=== PATIENT | female | born 1945 | race African-American/Black ===

== ENCOUNTER 2016-10-14 18:25 | Inpatient (IN) | payer OTHER ==
--- NOTE | ~2016-10-14 | IDS ---
Interim Discharge Summary [facility] [address] [place]. [address] NAME: MARCE VOGEL : 41 STATUS : ADM IN PAT#: [id number] AGE: 71 ADM/REG DATE : 10/14/16 MR#: [id number] REPORT SERV DATE: 11/09/16 DICTATED BY: MARIA DOLORES ENGLE DATE: 11/09/16 REPORT STATUS : Draft TRANSCRIBED BY: MODL DATE: 11/09/16 ADMISSION DATE: 10/14/2016 DISCHARGE DATE: CONSULTANTS: Please see full list on my interim summary of 10/26/2016. PROBLEM LIST: 1. TTP with thrombocytopenia, hemolytic anemia, status post acute kidney injury, non-ST- elevation myocardial infarction, and multiple strokes. 2. Owl-HM-xqkefytxb myocardial infarction with ejection fraction of 40%. 3. Multiple bilateral acute ischemic strokes. 4. Metabolic encephalopathy related to problem #1 and strokes. 5. Escherichia coli urinary tract infection. 6. Previous DVT and pulmonary embolism, 07/2013 after left total knee replacement. 7. History of gout. 8. History of irritable bowel syndrome. HISTORY: She came to the ER at [facility] with complaints of headache and blurred vision and was seen by an fabric worker supervisor prior to that ER visit. She was sent to get a sedimentation rate, and a temporal arteritis evaluation. She was noted to have platelet count of 12 and total bilirubin of 1.6 and AST of 64. She was referred to our team for inpatient care. CT scan of the brain showed mild diffuse atrophy, moderate deep white matter changes. No acute abnormalities noted. MRI of the brain, 10/15/2016 showed bilateral acute embolic infarctions involving both hemispheres, very small in size, largest was in the left parietal occipital region. There were some microbleeds suggesting the possibility of amyloid angiopathy. Earlier, she was thought to have ITP, was given Decadron. She was then given IVIG. She had a bone marrow, that was unremarkable. Hepatitis A, B, and C, serology negative. HIV was nonreactive. The patient's troponin was elevated at 3.4 with some vague anterior chest discomfort. EKG showed inferolateral ST depression without elevation. Dr. Da Silva of Cardiology saw her. Echocardiogram showed ejection fraction of 40%. He felt she had a non-ST elevation myocardial infarction and possibly some underlying coronary disease. With her stroke and TTP, she was recommended for medical therapy and no angiography is planned at this time per my discussions with Cardiology. The patient developed acute kidney injury and the constellation then was more consistent with TTP. Plasmapheresis was initiated. Hematology saw her as well, Dr. Roe and his partners. Her platelet counts normalized, LDH normalized. Her plasmapheresis was held for a day or two, but her thrombocytopenia and hemolytic anemia worsened, and LDH went up again, so she is back on daily plasmapheresis. She is also getting weekly Rituxan. She has two more doses scheduled. She is currently on prednisone and the dose was reduced yesterday from 60 to 40 mg daily. Because of the high-dose steroids, she is on Protonix for GI prophylaxis. She has had a metabolic encephalopathy, where she was quite slow mentally and her movements Interim Discharge Summary [address] [place]. [address] NAME: MARCE VOGEL : 43 STATUS : ADM IN [facility]#: [id number] AGE: 71 ADM/REG DATE : 10/14/16 MR#: [id number] REPORT SERV DATE: 11/09/16 DICTATED BY: MARIA DOLORES ENGLE DATE: 11/09/16 REPORT STATUS : Draft TRANSCRIBED BY: MODL DATE: 11/09/16 were very slow as well, however that is improving. She has symmetrical weakness of 2/5 in all four extremities. She initially had double vision, which does not appear to be there now. Again, the plan is for her to go to rehab, when she is well enough to get out of the hospital. Hematology has followed her closely. Her anti-HKKRSF01 was 5, which is very low. So, Dr. 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 I have updated her daughter, Remington by phone She has E coli urinary tract infection, has been receiving Levaquin with symptomatic improvement. Currently, the orders for SCDs are in place for DVT prophylaxis. We have left orders to start on Lovenox, if and when Hematology is in agreement with this. KELTON/TUNG Maria Dolores Engle M.D. / [id number] CC: Kelvin Stern M.D.
--- NOTE | ~2016-10-14 | HP ---
History And Physical [place] [id number] [facility] [place]. [address] NAME: MARCE VOGEL : 43 STATUS : ADM IN PAT#: [id number] AGE: 71 ADM/REG DATE : 10/14/16 MR#: [id number] REPORT SERV DATE: 10/15/16 DICTATED BY: ASHLEY HICKMAN DATE: 10/15/16 REPORT STATUS : Draft TRANSCRIBED BY: MODL DATE: 10/15/16 DATE OF ADMISSION: 10/14/2016 CHIEF COMPLAINT: A 71-year-old female presenting with headache, and evidence of ITP. HISTORY OF PRESENTING ILLNESS: The patient's history was obtained through careful interview with the patient and two daughters coupled with review of [facility] and [facility] medical records. The patient believes she first had deteriorating health when she had a left knee surgery in 2012 and subsequently developed a pulmonary embolism. Because it was thought to be a provoked DVT and pulmonary embolism, she was on Xarelto for about six months, and then taken off this medication. Over these last four years, the patient has lost a total of 30 pounds gradually and has just been gradually, progressively debilitated by her own description. Recently, she has developed a new onset headache in her left jehovah's witness mostly, it has been present for about five or six days, a pressure like quality, sometimes making it difficult to sleep, up to 10/10 severity. She has had associated blurry vision, with an inability to focus in her left eye greater than right, and she actually went to see an hospital aide on day of admission, and was told that she had a negative ophthalmological exam and was referred to emergency department for CT scan of the brain and to check ESR to rule out temporal arteritis. She has had some slight nausea, but no vomiting. No shortness of breath. No chest pain. She has been taking p.r.n. Aleve for pain complaints. She does use chronic FiberCon for bowel regulation, and she has chronic right lymphedema that comes and goes. REVIEW OF SYSTEMS: Otherwise, a 14-point review of systems was obtained and was negative. PAST MEDICAL HISTORY: 1. Mitral valve prolapse. 2. Irritable bowel syndrome, seen by Dr. He. 3. Hypertension. 4. Headaches. 5. Gout. 6. Pulmonary embolism in 09/2016, provoked from her left knee surgery, taken off Xarelto after 6 months. 7. Thrombocytosis with a platelet count in the 500s in 2013. History And Physical [address] [address] NAME: MARCE VOGEL : 43 STATUS : ADM IN PAT#: [id number] AGE: 71 ADM/REG DATE : 10/14/16 MR#: [id number] REPORT SERV DATE: 10/15/16 DICTATED BY: ASHLEY HICKMAN DATE: 10/15/16 REPORT STATUS : Draft TRANSCRIBED BY: TUNG DATE: 10/15/16 8. Asthma. PAST SURGICAL HISTORY: 1. Left knee surgery. 2. Tubal ligation. ALLERGIES: SULFA, FISH, IODINE. SOCIAL HISTORY: Quit smoking in 2004. No alcohol abuse. 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 Her favorite grade was third grade. She lives alone now, has two daughters. FAMILY HISTORY: Mother of colon cancer. Father with colon cancer, prostate cancer, but also had severe dementia. CURRENT MEDICATIONS: Include allopurinol 300 mg p.o. daily, vitamin C, aspirin 81 mg daily, calcium and vitamin D, vitamin B12, Bentyl 10 mg before meals, Cozaar 10 mg p.o. daily, Singulair 10 mg p.o. daily, nitroglycerin, Prilosec, vitamin E. PHYSICAL EXAMINATION: VITAL SIGNS: Temperature 98.8, pulse 80, blood pressure 186/98, respiratory rate 16, O2 saturation 100% on room air. GENERAL: Pleasant, cooperative female. She describes distressed from her left-sided headache. HEENT: Pupils equal, round, and reactive to light. No conjunctival pallor. No scleral icterus. Nares are patent. Oropharynx is clear of obstruction. Moist mucous membranes. The patient has this kind of dark bizarre appearing dotted speckles over her tongue of unclear significance. NECK: Trachea midline. No thyromegaly. LYMPH: No cervical lymphadenopathy. No supraclavicular lymphadenopathy. RESPIRATORY: Clear to auscultation at the bases. No wheezes, rales, or rhonchi. Normal respiratory effort. CARDIOVASCULAR: Regular rate and rhythm. I do appreciate a 2/6 rumbling systolic murmur. No rubs or gallops. No extremity edema is appreciated at this time. ABDOMEN: Soft, nontender, nondistended. Normal bowel sounds auscultated throughout. No organomegaly. DERMATOLOGICAL: Warm and dry extremities. No pallor. No cyanosis. No significant bruising. No purpura. PSYCHIATRIC: Normal affect. Good mood. Alert and oriented x3. LABORATORY DATA: White blood cell count 5, hemoglobin 11, hematocrit 34, platelets 12. ESR is 8. INR 1.1. Sodium 143, potassium 3.5, chloride 108, bicarb 29, BUN 20, creatinine 0.91, glucose 122. Total bilirubin is elevated at 1.6 with an AST of 64, but normal alkaline phosphatase of 110 and ALT of 27. STUDIES: CT scan of the brain without contrast shows no acute intracranial process. ASSESSMENT AND PLAN: History And Physical [address] [address] NAME: MARCE VOGEL : 43 STATUS : ADM IN [facility]#: [id number] AGE: 71 ADM/REG DATE : 10/14/16 MR#: [id number] REPORT SERV DATE: 10/15/16 DICTATED BY: ASHLEY HICKMAN DATE: 10/15/16 REPORT STATUS : Draft TRANSCRIBED BY: TUNG DATE: 10/15/16 1. ITP, we will screen for secondary causes including hepatitis panel, HIV, and MIGUEL, place on IV steroids, obtain Hematology consult. No evidence of current bleeding. 2. Severe new headache with vision changes. She has negative ESR, negative CT scan of the brain. Because of severity of presentation, we will check MRA of the brain. 3. Gradual weight loss of about 30 pounds over last three or four years. KPL/MODL Ashley Hickman M.D. / [id number] CC: MD Maryana Ely M.D.
--- NOTE | ~2016-10-14 | OP ---
Record Of Operation [facility] [address] [place]. [address] NAME: MARCE VOGEL : 43 STATUS : ADM IN [facility]#: [id number] AGE: 71 ADM/REG DATE : 10/14/16 MR#: [id number] REPORT SERV DATE: 10/19/16 DICTATED BY: CHANNING BANG DATE: 10/19/16 REPORT STATUS : Draft TRANSCRIBED BY: MODL DATE: 10/19/16 DATE OF PROCEDURE: 10/19/2016 PREOPERATIVE DIAGNOSIS: Idiopathic thrombocytopenia with severe depressed platelets. POSTOPERATIVE DIAGNOSIS: Idiopathic thrombocytopenia with severe depressed platelets. SURGERY PROCEDURE: Placement of temporary Vas-Cath, right common femoral vein. DESCRIPTION OF PROCEDURE: The patient was in the intensive care unit with a platelet count about 8000. The request was made for urgent placement of a Vas-Cath for plasmapheresis. The patient was somnolent, the right groin prepped and draped in a sterile fashion. Ultrasound was used to access the right femoral vein with a needle wire and a small sheath. The incision was made at the skin margin, and then the stripping catheter placed over the guidewire. The 20-cm Vas-Cath was then placed over the wire into the iliac vein and into the possible vena cava, and then the sheath was then stripped away. The catheter easily aspirated blood. It was then flushed with heparinized saline, sewn to the anterior thigh with 2-0 silk suture. A pursestring also made at the entry due to oozing from the catheter site. Dry dressings were applied. The patient tolerated the procedure well. ESTIMATED BLOOD LOSS: 30 mL. MG/MODL Channing Bang M.D. / [id number] CC: Rakesh Clemente MD
--- NOTE | ~2016-10-14 | DS ---
Discharge Summary [facility] [address] [place]. [address] NAME: MARCE VOGEL : 41 STATUS : ADM IN [facility]#: [id number] AGE: 71 ADM/REG DATE : 10/14/16 MR#: [id number] REPORT SERV DATE: 10/17/16 DICTATED BY: Melody RUBIO DATE: 10/17/16 REPORT STATUS : Draft TRANSCRIBED BY: MODL DATE: 10/17/16 ADMISSION DATE: 10/14/2016 DISCHARGE DATE: DATE OF INTERIM SUMMARY: 10/17/2016. DIAGNOSES AT THE TIME OF INTERIM SUMMARY: Multiple small embolic cerebrovascular accidents with small petechial areas of hemorrhage, suspected idiopathic thrombocytopenic purpura, hypertension, non-ST segment elevation myocardial infarction, left ventricular dysfunction, acute kidney injury, failure to thrive/weight loss, acute on chronic anemia. CONSULTS: Hematology, Cardiology, Neurology. PROCEDURES: Bone marrow biopsy. BRIEF HOSPITAL COURSE: A 71-year-old female patient who went to an outlying clinic with complaint of headache and visual change and she was sent to the emergency room for further evaluation. On additional labs, she was found to have severe thrombocytopenia and was admitted for further evaluation. The patient also had an MRI of the brain because of headache and visual symptoms. This ultimately showed multiple small embolic CVAs, acute in nature, with a few small areas of petechial-type hemorrhage. With regard to her suspected ITP, she was seen by Hematology and started on a combination of steroids and IVIG. She has had a bone marrow biopsy, which is complete but currently pending. Additional studies from her thrombocytopenia evaluation show a negative viral hepatitis panel, negative HIV, negative serum protein electrophoresis, negative urine protein immunophoresis, and negative evaluation of her peripheral smear. The patient also was found to have an elevated troponin level consistent with non-STEMI. The patient had an echocardiogram that did show diminished left ventricular function. She has been seen by Cardiology. Because of her severe thrombocytopenia, the patient is not a candidate for aggressive medical therapy, in fact, recommendations at this time are do not institute aspirin therapy until her platelet count is increased to 50,000 or greater. At the time of this interim summary, the patient is clinically very stable. Has minimal if any neurologic deficit. On therapy, her platelet count has increased to 44. She has developed some anemia of uncertain etiology. Currently, Hematology is waiting to evaluate her bone marrow biopsy before making further recommendations and she has not reached transfusion threshold at this point. The patient will transition to a cardiac telemetry bed for ongoing evaluation. She will continue on the current combination of steroids and IVIG for treatment of her ITP. We have placed her on a low dose of beta-gonzález because of her non-STEMI and she continues to be monitored closely. Another member of the hospitalist team will be providing her care starting 10/18/2016 with an ongoing co-management by combination of Cardiology, Hematology, and Neurology. Significant labs at time of this interim summary show a white count of 9, hemoglobin of 7.4, platelet count of 44, BUN of 54, and creatinine of 1.50. [facility]/MODL Discharge Summary [address] [address] NAME: MARCE VOGEL : 43 STATUS : ADM IN [facility]#: [id number] AGE: 71 ADM/REG DATE : 10/14/16 MR#: [id number] REPORT SERV DATE: 10/17/16 DICTATED BY: Melody RUBIO DATE: 10/17/16 REPORT STATUS : Draft TRANSCRIBED BY: TUNG DATE: 10/17/16 Melody Rubio M.D. / [id number] CC: MD Maryana Ely M.D.
--- NOTE | ~2016-10-14 | IDS ---
Interim Discharge Summary [facility] [address] [place]. [address] NAME: MARCE VOGEL : 43 STATUS : ADM IN PAT#: [id number] AGE: 71 ADM/REG DATE : 10/14/16 MR#: [id number] REPORT SERV DATE: 10/23/16 DICTATED BY: UMANG FLOWERS DATE: 10/23/16 REPORT STATUS : Draft TRANSCRIBED BY: MODL DATE: 10/23/16 ADMISSION DATE: 10/15/2016 DISCHARGE DATE: 10/18/2016 ICU COURSE: Please see dictated H and P as well as interim summary by Dr. Melton on 10/17 for the patient presentation and hospital course up until that point. BRIEF SUMMARY: The patient is a 71-year-old female with past medical history of hypertension and pulmonary embolism who was initially admitted to the Hospitalist Service with multiple small embolic CVAs with small petechial areas of hemorrhage, altered mental status, non-ST- elevation myocardial infarction, acute renal failure, and suspected idiopathic thrombocytopenic purpura. At that time, the patient was receiving IVIG as well as steroids on the floor with initial improvement in her laboratory data. Then however on 10/18, the patient developed worsening encephalopathy as well as worsening platelet count and rising creatinine. She was transferred to the ICU for worsening mental status and fear for potential need for intubation for airway protection. At that time, she had a repeat MRI of her brain that showed microhemorrhagic conversion of part of her stroke but otherwise nothing that could explain her worsening mental status. At that time, we got Nephrology involved as well. The thinking between Nephrology and Hematology was that they saw schistocytes on her smear and she likely had a TTP at that time. She was started on plasmapheresis and has undergone 5 days so far with today being day 6 and likely the final day of pheresis. Over that time period, we have seen improvement in her mental status to the point where she is now awake, talking, following commands, and seems to be doing well. Her platelet count has also improved as well as her creatinine. By all accounts, she seems to be responding to the plasmapheresis and her TTP seems to be improving. She has been hemodynamically stable and should be able to be transferred out to the floor today if she gets a bed after her last day of the plasmapheresis. Appreciate Nephrology and Hematology's assistance with this patient. They will continue to follow her when she goes out to the floor. When she leaves the ICU, the Hospitalist will resume her care. Please call if you have any questions. SB/TUNG Umang Flowers MD / [id number] CC: MD Maryana Ely M.D.
--- NOTE | ~2016-10-14 | IDS ---
Interim Discharge Summary [facility] [address] [place]. [address] NAME: MARCE VOGEL : 41 STATUS : ADM IN [facility]#: [id number] AGE: 71 ADM/REG DATE : 10/14/16 MR#: [id number] REPORT SERV DATE: 11/03/16 DICTATED BY: MARIKA COMER DATE: 11/03/16 REPORT STATUS : Draft TRANSCRIBED BY: MODL DATE: 11/03/16 ADMISSION DATE: 10/14/2016 DISCHARGE DATE: The date that I took over care of this patient is 10/27/2016. DIAGNOSES: So far include the followin. 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 The patient already has a port through which she gets the plasmapheresis. 2. Other diagnosis that are chronic and stable during this hospitalization itself include a kjx-XT-bqhyxno elevation myocardial infarction with ejection fraction of 40% of the left ventricle, which is stable at this time. 3. Multiple embolic strokes which the patient had as part of the thrombotic thrombocytopenic purpura syndrome I guess, which are stable at this time. 4. Seizure disorder that happened during this whole part of thrombotic thrombocytopenic purpura itself. The patient is being followed by Neurology, and Neurology recommends that the patient stay on Keppra 1 g p.o. twice a day indefinitely. 5. Multiple bilateral acute strokes from multiple emboli part of thrombotic thrombocytopenic purpura syndrome itself when she came in. 6. Metabolic encephalopathy ,which has almost cleared up. 7. History of previous deep venous thrombosis and pulmonary embolism in 2013 after total knee replacement. Hence, the patient is not a candidate for anticoagulation at least at this time. HOSPITAL COURSE: All the way until 10/26/2016, please refer to Dr. Engle's interim discharge summary. It is also to be noted that this patient was in the MICU for some time as she had come in critically sick as part of the whole big picture of the TTP/AIHA syndrome. This diagnosis was made during this admission. The patient continues to be followed by both Hematology/Oncology and also Nephrology as nephrologists are the ones who are doing her plasmapheresis. Plasmapheresis frequency however is being dictated by Heme/Onc. She also has been started on Rituxan in the mean time, and also high-dose prednisone. With this therapy, her platelets have stabilized and so has her hemoglobin and hematocrit. However, the heme/Onc doctor wants to keep her for few more days until her platelets start improving more and her hematocrit stabilizes also. Maybe in the next one or two days, the patient will be ready to go on to [facility] after recommendations for frequency of plasmapheresis is made by the Heme/Onc. As mentioned above, she continues to be on Rituxan and prednisone 60 mg a day and has been doing well so far. My colleague will be taking over care of this patient on 11/04/2016. PASCUAL/TUNG Interim Discharge Summary [address] [address] NAME: MARCE VOGEL : 41 STATUS : ADM IN PAT#: [id number] AGE: 71 ADM/REG DATE : 10/14/16 MR#: [id number] REPORT SERV DATE: 11/03/16 DICTATED BY: MARIKA COMER DATE: 11/03/16 REPORT STATUS : Draft TRANSCRIBED BY: TUNG DATE: 11/03/16 Marika Comer M.D. / [id number] CC: Kelvin Bui M.D.
--- NOTE | ~2016-10-14 | EEG ---
Electroencephalogram [address] [place]. [address] NAME: MARCE VOGEL : 41 STATUS : ADM IN PAT#: [id number] AGE: 71 ADM/REG DATE : 10/14/16 MR#: [id number] REPORT SERV DATE: 10/22/16 DICTATED BY: ANGI CRUZ DATE: 10/22/16 REPORT STATUS : Draft TRANSCRIBED BY: TUNG DATE: 10/22/16 REQUESTING PHYSICIAN: Angi Cruz M.D. INTERPRETING PHYSICIAN: Angi Cruz M.D. AGE: 71. DATE OF : 1945. REASON FOR EEG: Abrupt altered mental status, thrombocytopenia, multiple embolic stroke, rule out status epilepticus seizures. This EEG was technically unsatisfactory secondary to inability to place electrodes on the patient's scalp. The PEG was done at the patient's bedside. I was able to observe the EEG while it was being performed monitoring the patient's response. No evidence of tonic-clonic activity was seen. The electrodes were placed only in the anterior head regions and there was no evidence of acute seizure activity. Could not comment or determine whether the patient may have had any abnormal activity in posterior head regions. This EEG is technically unsatisfactory for full interpretation. ROYCE/TUNG Angi Cruz MD / [id number] CC: MD PAIGE Ely TANJA A.
--- NOTE | ~2016-10-14 | DS ---
Discharge Summary [facility] [address] [place]. [address] NAME: MARCE VOGEL : 41 STATUS : DIS IN PAT#: [id number] AGE: 71 ADM/REG DATE : 10/14/16 MR#: [id number] REPORT SERV DATE: 11/16/16 DICTATED BY: NAVEEN OLMOS DATE: 11/15/16 REPORT STATUS : Draft TRANSCRIBED BY: MODL DATE: 11/15/16 ADMISSION DATE: 10/14/2016 DISCHARGE DATE: 11/14/2016 PRINCIPAL DIAGNOSIS: Thrombotic thrombocytopenic purpura. SECONDARY DIAGNOSES: 1. Acute stroke in the setting of abnormal coagulation cascade. 2. Non ST-segment elevation myocardial infarction in the setting of an abnormal coagulation cascade. 3. Metabolic encephalopathy. 4. Hemolytic anemia. 5. Thrombocytopenia. 6. Hypertension. 7. Urinary tract infection. 8. Reduced ejection fraction. HISTORY OF PRESENT ILLNESS: Please see Dr. Patricia's dictation on 10/14/2016. HOSPITAL COURSE: Please see subsequent interim summaries by Dr. Melton on 10/18/2016, Dr. Pate on 11/03/2016, Dr. Engle on 11/10/2016. Subsequent hospital course, the patient continued plasmapheresis on Thursday, Thursday, and Thursday. Received yet another dose of rituximab on 11/14/2016. Platelets had stabilized. LDH continued to be mildly elevated. The creatinine had also normalized. It was felt that the main issue for her was weakness and she would require ongoing physical therapy and arrangements were made to transfer to [facility]. No further plasmapheresis was planned. She would hold off on this until her next Rituxan therapy in one week, although her Port-A-Cath would remain in place with consideration of resuming that after a week. Mental status is okay. She participating well and eating well. Bowels were normal. She had met the maximum benefit of hospitalization by 11/14/2016. She was released in satisfactory condition, following up with Dr. Maryana Carvajal, following rehab discharge, Dr. North Roe next Thursday, and [facility] DISCHARGE MEDICATIONS: Medications at the time of discharge includin. Aspirin. 2. Lipitor. 3. Lotensin. 4. Coreg. 5. Colace. 6. Singulair. 7. Protonix. 8. Prednisone 40 mg daily. 9. Weekly Rituxan as mentioned. Greater than 30 minutes were spent in the care of this patient, discharge planing, and discharge day. Discharge Summary [place] [address] [facility] [place]. [address] NAME: MARCE VOGEL : 43 STATUS : DIS IN PAT#: [id number] AGE: 71 ADM/REG DATE : 10/14/16 MR#: [id number] REPORT SERV DATE: 11/16/16 DICTATED BY: NAVEEN OLMOS DATE: 11/15/16 REPORT STATUS : Draft TRANSCRIBED BY: TUNG DATE: 11/15/16 [facility]/TUNG Naveen Olmos M.D. / [id number] CC: Kelvin Saldana M.D. Edward Arrowsmith, M.D. Nathan Chamberlain, M.D.
--- NOTE | ~2016-10-14 | CN ---
Consultation Report [facility] [address] [place]. [address] NAME: MARCE GOMEZ : 43 STATUS : ADM IN PAT#: [id number] AGE: 71 ADM/REG DATE : 10/14/16 MR#: [id number] REPORT SERV DATE: 10/16/16 DICTATED BY: BRAN MATIAS DATE: 10/16/16 REPORT STATUS : Draft TRANSCRIBED BY: MODL DATE: 10/16/16 CARDIOLOGY CONSULT NOTE DATE OF CONSULTATION: 10/16/2016 REASON FOR CONSULTATION: Abnormal troponin. HISTORY OF PRESENT ILLNESS: Ms Gomez is a 71-year-old female with a history of treated hypertension, who presented to the [facility] Emergency Department with complaints of headache and diplopia. On arrival, she was found to be hemodynamically stable with suspected idiopathic thrombocytopenic purpura and a platelet count of 5. She had mild anemia with hemoglobin of 10. She was complaining of some vague indigestion, and ECG was checked which showed inferolateral ST changes without ST elevation. Subsequent troponins were 2.5, 2.9, and this morning 3.4. Prior to presenting with her headache and diplopia, she denied having any symptoms of exertional angina or shortness of breath. She has never had palpitations or syncope. She denies orthopnea/PND. She has had some recent ankle edema that is now resolved. Since being admitted, she did undergo an MRI of the brain to further evaluate her neurological complaints, which showed multiple embolic type events with small areas of hemorrhage. She has been seen by Hematology and is on treatment for suspected ITP. She received platelets yesterday. She states her diplopia is improved and other than some vague intermittent indigestion type symptoms, she has no other complaints at this time. REVIEW OF SYSTEMS: Pertinent positives are negatives as outlined above, all others are negative. PAST MEDICAL HISTORY: Includes hypertension and osteoarthritis status post bilateral knee replacement. MEDICATIONS: Current home medications: 1. Losartan 100 mg daily. 2. Aspirin 81 mg daily. 3. Vitamin C supplementation. 4. Allopurinol 300 mg daily. 5. Calcium with vitamin D supplementation. 6. Vitamin B12 supplementation. 7. Singulair. 8. Omeprazole 40 mg daily. 9. Vitamin E supplementation. ALLERGIES: INCLUDE SULFA; IODINE, WHICH CAUSES A RASH; AND "FISH CONTAINING PRODUCTS." SOCIAL HISTORY: She does not use tobacco products, consume alcohol, or use illegal drugs. FAMILY HISTORY: Significant for hypertension. There is no family history of premature CAD, cardiomyopathy, or sudden . Consultation Report [place] [address] [place]. [address] NAME: MARCE GOMEZ : 43 STATUS : ADM IN PAT#: [id number] AGE: 71 ADM/REG DATE : 10/14/16 MR#: [id number] REPORT SERV DATE: 10/16/16 DICTATED BY: BRAN MATIAS DATE: 10/16/16 REPORT STATUS : Draft TRANSCRIBED BY: TUNG DATE: 10/16/16 PHYSICAL EXAMINATION: VITALS: Temp 98, Pulse 76, Respirations 16, BP 145/72. MENTAL STATUS: Awake, alert, and oriented x3. PSYCH: Euthymic, normal affect. GENERAL: Well appearing and in no distress. HEENT: Sclerae anicteric, mucous membranes moist and without lesions. NECK: No jugular venous distention. No hepatojugular reflux, carotid upstrokes 2+ and symmetric, there are no carotid or subclavian bruit. LUNGS: Clear to auscultation without wheezes, crackles, or rales. CARDIOVASCULAR: Regular with soft S1 and normal S2. No audible S3. There is a 1/6 holosystolic murmur heard at the apex. There is no parasternal lift. PMI is not palpable. ABDOMEN: Soft and nontender. Bowel sounds positive and normoactive. No hepatomegaly, no masses, no abdominal bruit. PULSES: Radial and dorsalis pedis pulses 2+ and symmetric. EXTREMITIES: Warm and without edema. SKIN: No clubbing or cyanosis, no rashes or lesions. ACCESSORY DATA: Echocardiogram from 10/15/2016 was personally reviewed. LVEF is 40% with global hypocontractility and more focal inferior-posterior akinesis. There is mild mitral and tricuspid regurgitation. IMPRESSION: 1. Non ST-elevation myocardial infarction. 2. Ischemic cardiomyopathy, EF of 40% with more focal inferior-posterior akinesis. 3. Coronary artery disease, presumed. 4. Left ventricular hypertrophy, hypertensive heart disease. 5. Hypertension. 6. Cerebrovascular accident, subacute with hemorrhage. 7. Idiopathic thrombocytopenia purpura. 8. Anemia. 9. Acute renal failure versus acute kidney injury. 10.Mild mitral and tricuspid regurgitation. PLAN: Ms Gomez presents with a complex scenario further complicated by subacute myocardial infarction. She currently has no symptoms of angina or shortness of breath, only complaining of vague intermittent indigestion. At this point in time, it is unsafe for any invasive cardiovascular procedure due to her CVA with hemorrhage, ITP, anemia and hemoglobin of 8.7 this morning, acute kidney injury with creatinine increasing from 0.9 to 1.7, and etc. Plan medical management for now with increase carvedilol 6.25 mg twice daily. Due to acute kidney injury, stop ARB. Manage with nitroglycerin paste and p.o. and IV hydralazine as needed. Currently has been seen by Hematology and felt unsafe for any anticoagulants or antiplatelet therapy. Recommend aspirin when safe per Hematology. Questionable eventual time if coronary angiography on other acute issues have been addressed. Consultation Report [address] [place]. [address] NAME: MARCE GOMEZ : 43 STATUS : ADM IN PAT#: [id number] AGE: 71 ADM/REG DATE : 10/14/16 MR#: [id number] REPORT SERV DATE: 10/16/16 DICTATED BY: BRAN MATIAS. DATE: 10/16/16 REPORT STATUS : Draft TRANSCRIBED BY: TUNG DATE: 10/16/16 TARSHA/TUNG Bran Matias M.D. / [id number] CC: MD Maryana Ely M.D.
--- NOTE | ~2016-10-14 | CN ---
Consultation Report [facility] [address] [place]. [address] NAME: MARCE GOMEZ : 41 STATUS : ADM IN [facility]#: [id number] AGE: 71 ADM/REG DATE : 10/14/16 MR#: [id number] REPORT SERV DATE: 10/15/16 DICTATED BY: NOR[place] FLORES DATE: 10/15/16 REPORT STATUS : Draft TRANSCRIBED BY: MODL DATE: 10/15/16 CONSULTATION DATE OF CONSULTATION: REASON FOR REFERRAL: Probable ITP. HISTORY OF PRESENT ILLNESS: Ms. Gomez is a 71-year-old woman with a past history of venous thrombosis following hip surgery. She was admitted to the hospital now with a headache, 20-pound weight loss, and general failure to thrive. She has had easy bruising for several months without associated bleeding. She has been noted to have thrombocytopenia with platelets of 5000. I personally reviewed her peripheral blood smear, which shows normal white blood cells without left shift or immature forms. The red blood cells are morphologically unremarkable. The platelets are markedly decreased in number. She has a slight elevation of her total bilirubin. The creatinine is 1.1. AST is 73. Of note, her troponin is elevated at 2.36. She denies chest pain. The BNP is 666. Her venous thrombosis has been non-problematic as of late. Osteoarthritis has been doing well. She has mitral valve prolapse which does well. She does require antibiotic prophylaxis. She has well-controlled gout and hypertension. FAMILY HISTORY: Negative for blood disorders. REVIEW OF SYSTEMS: A complete review of systems is negative except as per the HPI. PHYSICAL EXAMINATION: GENERAL: Reveals a thin woman in no distress. VITAL SIGNS: 97.7, 163/87, 74, 24. HEENT: The eye exam shows that the lids and conjunctivae without lesions. Mouth, the lips and gums show no abnormalities. The oropharynx is without thrush or stomatitis. NECK: Supple. There is no thyromegaly. SKIN: Without rash or nodules. I do not see petechiae. CARDIOVASCULAR: Reveals regular rate and rhythm. I do not hear a murmur. There is no peripheral edema. LUNGS: Clear to auscultation with normal respiratory effort. ABDOMEN: Soft. There is no palpable hepatosplenomegaly. PSYCHIATRIC: Shows normal insight and judgment. Appropriate mood and affect. NEUROLOGIC: Shows that she moves all of her extremities well. Cranial nerves appear grossly intact. DATA REVIEW: As per the HPI. ASSESSMENT: Thrombocytopenia, I do think this is ITP. She was started on dexamethasone. We Consultation Report [place] [address] [place]. [address] NAME: MARCE GOMEZ : 43 STATUS : ADM IN PAT#: [id number] AGE: 71 ADM/REG DATE : 10/14/16 MR#: [id number] REPORT SERV DATE: 10/15/16 DICTATED BY: NORTH FLORES DATE: 10/15/16 REPORT STATUS : Draft TRANSCRIBED BY: MODL DATE: 10/15/16 will give 40 mg daily which is a change from the dose that she has been getting. I will talk with Dr. Melton and the cardiology team. Her most recent platelets were up to 12,000 and we may want to give her aspirin. EA/MODL North Flores M.D. / [id number] CC: MD Maryana Ely M.D.
--- NOTE | ~2016-10-14 | CN ---
Consultation Report [facility] [address] [place]. [address] NAME: MARCE GOMEZ : 43 STATUS : ADM IN PAT#: [id number] AGE: 71 ADM/REG DATE : 10/14/16 MR#: [id number] REPORT SERV DATE: 10/18/16 DICTATED BY: LETY EPPERSON DATE: 10/18/16 REPORT STATUS : Draft TRANSCRIBED BY: MODDuc DATE: 10/18/16 NEPHROLOGY CONSULTATION DATE OF CONSULTATION: 10/18/2016 INDICATION FOR CONSULTATION: Possible TTP requiring plasmapheresis. HISTORY OF PRESENT ILLNESS: Ms Gomez is a 71-year-old female, who initially presented on 10/14/2016 with headache and was found to have severe thrombocytopenia. She apparently has had failure to thrive with a 30-pound weight loss and progressive debilitation. She noted a new onset headache primarily over her left moravian and it persisted for approximately six days and was associated with some blurry vision. She was referred to the emergency room to evaluate for possible temporal arteritis. The patient was found to have multiple embolic strokes on her CT/MRI scan. Her initial platelet count was 12,000, creatinine was 0.91, bilirubin was 1.6. She was felt initially to have ITP and apparently had an acute change in her mentation prompting the MRI, which demonstrated multiple embolic CVAs. Subsequently, her creatinine elevated and she was noted to have hemolysis, which raises the question of TTP. PAST MEDICAL HISTORY: Mitral valve prolapse, irritable bowel syndrome, hypertension, headaches, gout, pulmonary embolism 09/2016 following left knee surgery, tubal ligation, osteoarthritis, nonischemic cardiomyopathy with ejection fraction of 40%. ALLERGIES: SULFA, FISH, IODINE. SOCIAL HISTORY: Per chart. Quit smoking 2004. No alcohol abuse. 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 Lives alone. Has two daughters. FAMILY HISTORY: Per chart. Mother of colon cancer. Father with colon and prostate cancer, but also has severe dementia. No history of end-stage renal disease. MEDICATIONS: On admission, allopurinol, vitamin C, chewable aspirin, calcium plus vitamin D, vitamin B12, Bentyl, losartan, Singulair, Nitrostat, Prilosec, vitamin E. REVIEW OF SYSTEMS: System review, unable to obtain. The patient is nonverbal. PHYSICAL EXAMINATION: GENERAL: Somnolent female, unresponsive. VITAL SIGNS: Blood pressure 144/82, temp 97.0, pulse 110, respiratory rate 22. HEENT: Eyes, no scleral icterus. Pupils reactive. Nares patent. No lesions. Throat, no injection. Mucous membranes somewhat dry. NECK: No thyromegaly, masses, or bruits. CHEST/LUNGS: Few scattered rhonchi. Some lateral crackles. Consultation Report [address] [place]. [address] NAME: MARCE GOMEZ : 43 STATUS : ADM IN [facility]#: [id number] AGE: 71 ADM/REG DATE : 10/14/16 MR#: [id number] REPORT SERV DATE: 10/18/16 DICTATED BY: LETY EPPERSON DATE: 10/18/16 REPORT STATUS : Draft TRANSCRIBED BY: TUNG DATE: 10/18/16 CARDIAC: Regular rate. Regular tachycardia. No murmur, gallop, or rub noted. ABDOMEN: Supple. Normoactive bowel sounds. Nontender. No guarding. BREASTS: Not performed. PELVIC: Not performed. RECTAL: Not performed. EXTREMITIES: Trace edema. No calf tenderness. DERMIS: No rash. No skin lesions. MUSCULOSKELETAL: No deformity. IMPRESSION: 1. Probable thrombotic thrombocytopenic purpura. 2. Multiple embolic cerebrovascular accident. 3. Altered mentation. 4. Hemolytic anemia. 5. Thrombocytopenia initially felt to be idiopathic thrombocytopenic purpura. 6. Acute kidney injury. Creatinine rising to 1.76 from admission value of 0.9. 7. Non-ST elevation myocardial infarction. 8. Nonischemic cardiomyopathy, ejection fraction 40%. 9. Hypertension. 10.History of pulmonary embolus. 11.Mitral valve prolapse. 12.Gout. 13.Osteoarthritis with prior right total knee arthroplasty. PLAN: 1. Plasmapheresis as scheduled. 2. Transfuse 2 units packed red blood cells. CG/MODL Lety Epperson M.D. / [id number] CC: Rakesh Clemente MD
--- NOTE | ~2016-10-14 | IDS ---
Interim Discharge Summary [facility] [address] [place]. [address] NAME: MARCE VOGEL : 41 STATUS : ADM IN PAT#: [id number] AGE: 71 ADM/REG DATE : 10/14/16 MR#: [id number] REPORT SERV DATE: 10/26/16 DICTATED BY: MARIA DOLORES ENGLE DATE: 10/26/16 REPORT STATUS : Draft TRANSCRIBED BY: MODL DATE: 10/26/16 ADMISSION DATE: 10/14/2016 DISCHARGE DATE: CONSULTANTS: Dr. North Roe and [facility], Hematology; Dr. [facility], Cardiology; Dr. Idris Winters and [facility], Nephrology; Dr. Channing Calle, Vascular Surgery; Dr. Angi Cruz and Dr. Rhodes, Neurology; Dr. Fabricio Flowers, Critical Care. PROBLEM LIST: 1. TTP with thrombocytopenia, hemolytic anemia, acute kidney injury, multiple strokes. 2. Non-ST elevation myocardial infarction with ejection fraction of the left ventricle 40%. 3. Multiple bilateral acute strokes. 4. Metabolic encephalopathy. 5. Previous deep vein thrombosis, pulmonary embolism, 07/2013 after left total knee replacement. 6. History of irritable bowel syndrome. 7. History of gout. HISTORY: This patient came to the ER at [facility] with complaints of headache about four days, also with some blurry vision, went to seen an factory helper and was referred to the ER to get a sed rate to rule out temporal arteritis. In the ER, she was found have a platelet count of 12. Total bili elevated at 1.6, AST of 64. She was referred to our team for inpatient care. CT scan of the brain showed mild diffuse atrophy, moderate deep white matter changes, no acute abnormality. MRI of the brain on 10/15/2016 showed bilateral acute embolic infarctions both hemisphere, very small in size, largest in the left parietal occipital region. There is some microbleeds present suggesting the possibility of amyloid angiopathy. Reportedly early on the patient was thought to possibly have ITP. She was given Decadron. She was given IVIG. She had a bone marrow biopsy that was unremarkable. Hepatitis A, B, and C serology negative. HIV was nonreactive. The patient was also noted to have troponin elevation up to 3.4, and some vague anterior chest discomfort. EKG shows inferolateral ST depression without elevation. Dr. Da Silva saw her, echocardiogram showed ejection fraction 40%. He felt she had a non-ST elevation myocardial infarction, possibly some underlying coronary artery disease. With her stroke and thrombocytopenia, he recommended medical management and possibly further angiography later on. The patient developed acute kidney injury and the constellation really was more consistent with TTP, plasmapheresis was initiated. Hematology/Oncology saw her for this as well. The patient's platelet count has normalized. Her LDH is normalized. Her hemoglobin continues to drop. There is no acute blood loss noted. She has some slowing mentally and physically, but she follows commands. She has symmetrical motor strength at 2/5 in all four extremities. No Babinski or clonus noted. She initially reported some double vision. She does not appear to have that at this time. Interim Discharge Summary [address] [address] NAME: MARCE VOGEL : 41 STATUS : ADM IN [facility]#: [id number] AGE: 71 ADM/REG DATE : 10/14/16 MR#: [id number] REPORT SERV DATE: 10/26/16 DICTATED BY: MARIA DOLORES ENGLE DATE: 10/26/16 REPORT STATUS : Draft TRANSCRIBED BY: MODL DATE: 10/26/16 Hematology will continue to monitor hemoglobin and her LDH, and decide whether she needs any other longitudinal therapy for her ITP currently and [id number] is pending. Currently will be taking her Mims catheter out. We are asking the wound care team to take a look at some pressure areas on her bottom where she had some diarrhea. Have Physical Therapy and Occupational Therapy see her to assess whether she needs rehab. She had previous DVT and pulmonary embolism after a left knee replacement in 2012. RSG/MODL Maria Dolores Engle M.D. / [id number] CC: Rakesh Clemente MD
[~2016-10-14 18:25] MED LIST: BENTYL10 PO; CALTRAT600 PO; COUMADIN7.5 MG PO; COZAAR100 MG PO; L20 PO; PERCOCET1 TA2 PO; PLEND5 PO; PRILOSEC40 MG PO; T PO; VIMOVO PO; VITC500 PO; VITE PO; XARELTO15 MG PO; XARELTO20 MG PO; Z300 PO
[2016-10-14 21:04] LABS: BASOPHILS 0.2 %; BASOPHILS ABSOLUTE 0.01 10/3/uL (0.0-0.16); EOSINOPHILS 0.4 %; EOSINOPHILS ABSOLUTE 0.02 10/3/uL (0.0-0.53); IMMATURE GRANULOCYTES 0.2 %; IMMATURE GRANULOCYTES ABSOLUTE 0.01 10/3/uL (0.0-0.11); LYMPHOCYTES 24.8 %; LYMPHOCYTES ABSOLUTE 1.25 10/3/uL (0.67-4.30); MEAN CORPUSCULAR HEMOGLOB 27.5 pg (26.0-34.0); MEAN CORPUSCULAR VOLUME 83.3 fL (80-100); MONOCYTES 5.4 %; MONOCYTES ABSOLUTE 0.27 10/3/uL (0.21-1.20); NEUTROPHILS ABSOLUTE 3.48 10/3/uL (2.02-8.40); RBC DISTRIBUTION WIDTH 13.9 % (12.0-16.0)
[2016-10-14 21:17] LABS: HEMATOCRIT 33.9 % (36.0-48.0); HEMOGLOBIN 11.2 g/dL (12.0-16.0); RED CELL COUNT 4.07 10/6/uL (4.0-5.6)
[2016-10-14 21:18] LABS: MANUAL DIFF NO %; PLATELET COUNT 12 10/3/uL (150-400)
[2016-10-14 21:21] LABS: TEARDROP SHAPED RBCS OCC (0-2/OIF)
[2016-10-14 21:23] LABS: PATH REVIEW YES
[2016-10-14 22:01] LABS: SED RATE 8 MM/HR (0-20)
[2016-10-14] MEDS ORDERED: BENTYL10 PO (22:21)
[2016-10-14] MEDS ORDERED: PRILOSEC40 MG PO (22:21)
[2016-10-14] MEDS ORDERED: COZAAR100 MG PO (22:22)
[2016-10-14] MEDS ORDERED: ASAB PO (22:22)
[2016-10-14] MEDS ORDERED: CYANO1000T PO (22:22)
[2016-10-14] MEDS ORDERED: Z300 PO (22:22)
[2016-10-14] MEDS ORDERED: VITE PO (22:23)
[2016-10-14] MEDS ORDERED: OS500+D PO (22:23)
[2016-10-14] MEDS ORDERED: VITC500 PO (22:23)
[2016-10-14] MEDS ORDERED: SINGULAIR1 PO (22:23)
[2016-10-14] MEDS ORDERED: NITROSTAT0.4 MG SL (22:24)
[2016-10-15 01:27] LABS: BASOPHILS 0.2 %; BASOPHILS ABSOLUTE 0.01 10/3/uL (0.0-0.16); EOSINOPHILS 0 %; HEMATOCRIT 33.1 % (36.0-48.0); HEMOGLOBIN 11.2 g/dL (12.0-16.0); IMMATURE GRANULOCYTES 0.5 %; IMMATURE GRANULOCYTES ABSOLUTE 0.03 10/3/uL (0.0-0.11); LYMPHOCYTES 10.1 %; LYMPHOCYTES ABSOLUTE 0.56 10/3/uL (0.67-4.30); MEAN CORPUS HGB CONC 33.8 g/dL (32.0-36.0); MEAN CORPUSCULAR HEMOGLOB 27.6 pg (26.0-34.0); MEAN CORPUSCULAR VOLUME 81.5 fL (80-100); MONOCYTES 1.4 %; MONOCYTES ABSOLUTE 0.08 10/3/uL (0.21-1.20); NEUTROPHILS 87.8 %; NEUTROPHILS ABSOLUTE 4.89 10/3/uL (2.02-8.40); RED CELL COUNT 4.06 10/6/uL (4.0-5.6); WHITE BLOOD CELLS 5.6 10/3/uL (4.5-10.5)
[2016-10-15 01:28] LABS: MANUAL DIFF NO %; PLATELET COUNT 5 10/3/uL (150-400)
[2016-10-15 01:34] LABS: INTERNATIONAL NORMAL RATI 1.1 UNITS (-); PARTIAL THROMBO TIME 28.3 SEC (22.5-37.2)
[2016-10-15 01:40] LABS: PROTIME (NOT ORD) 14.5 SEC (12.0-14.5)
[2016-10-15 01:41] LABS: A/G RATIO 0.9 (0.7-1.9); ALBUMIN 3.1 G/DL (3.5-5.0); ALKALINE PHOSPHATASE 110 U/L (45-117); CALCIUM, SERUM 8.2 MG/DL (8.5-10.4); CHLORIDE, SERUM 108 MMOL/L (96-112); CO2 (CARBON DIOXIDE) 29 MMOL/L (24-34); CREATININE 0.91 MG/DL (0.55-1.02); GFR AFRICAN AMERICAN 73 ML/MIN (>=60); GFR NON AFRICAN AMERICAN 63 ML/MIN (>=60); GLOBULIN 3.5 G/DL (2.5-4.1); POTASSIUM, SERUM 3.5 MMOL/L (3.5-5.3); SGOT(AST) 64 U/L (5-40); SGPT(ALT) 27 U/L (5-65); SODIUM, SERUM 143 MMOL/L (135-148); TOTAL BILIRUBIN 1.6 MG/DL (0-1.2); TOTAL PROTEIN 6.6 G/DL (6.0-8.5)
[2016-10-15 01:43] LABS: BUN (BLOOD UREA NITROGEN) 20 MG/DL (6-23); GLUCOSE, SERUM 122 MG/DL (60-99)
[2016-10-15 01:48] LABS: ACANTHOCYTES FEW (3-10/OIF); SCHISTOCYTES OCC (0-2/OIF)
[2016-10-15 05:21] LABS: INTERNATIONAL NORMAL RATI 1.2 UNITS (-); PROTIME (NOT ORD) 14.7 SEC (12.0-14.5)
[2016-10-15 05:22] LABS: BASOPHILS 0 %; EOSINOPHILS 0 %; HEMATOCRIT 33.3 % (36.0-48.0); HEMOGLOBIN 11.3 g/dL (12.0-16.0); IMMATURE GRANULOCYTES 0.2 %; IMMATURE GRANULOCYTES ABSOLUTE 0.01 10/3/uL (0.0-0.11); LYMPHOCYTES 9.5 %; LYMPHOCYTES ABSOLUTE 0.43 10/3/uL (0.67-4.30); MANUAL DIFF NO %; MEAN CORPUS HGB CONC 33.9 g/dL (32.0-36.0); MEAN CORPUSCULAR HEMOGLOB 27.8 pg (26.0-34.0); MEAN CORPUSCULAR VOLUME 81.8 fL (80-100); MONOCYTES 1.5 %; MONOCYTES ABSOLUTE 0.07 10/3/uL (0.21-1.20); NEUTROPHILS 88.8 %; NEUTROPHILS ABSOLUTE 4.03 10/3/uL (2.02-8.40); PLATELET COUNT 8 10/3/uL (150-400); RBC DISTRIBUTION WIDTH 14.2 % (12.0-16.0); RED CELL COUNT 4.07 10/6/uL (4.0-5.6); WHITE BLOOD CELLS 4.5 10/3/uL (4.5-10.5)
[2016-10-15 05:36] LABS: A/G RATIO 0.9 (0.7-1.9); ALBUMIN 3.1 G/DL (3.5-5.0); ALKALINE PHOSPHATASE 112 U/L (45-117); CALCIUM, SERUM 8.1 MG/DL (8.5-10.4); CHLORIDE, SERUM 105 MMOL/L (96-112); CO2 (CARBON DIOXIDE) 25 MMOL/L (24-34); CREATININE 1.11 MG/DL (0.55-1.02); GFR AFRICAN AMERICAN 57 ML/MIN (>=60); GFR NON AFRICAN AMERICAN 49 ML/MIN (>=60); GLOBULIN 3.4 G/DL (2.5-4.1); POTASSIUM, SERUM 3.8 MMOL/L (3.5-5.3); SGOT(AST) 73 U/L (5-40); SGPT(ALT) 27 U/L (5-65); SODIUM, SERUM 142 MMOL/L (135-148); TOTAL BILIRUBIN 1.9 MG/DL (0-1.2); TOTAL PROTEIN 6.5 G/DL (6.0-8.5)
[2016-10-15 05:39] LABS: BUN (BLOOD UREA NITROGEN) 24 MG/DL (6-23); GLUCOSE, SERUM 176 MG/DL (60-99)
[2016-10-15 05:40] LABS: TROPONIN I 2.36 NG/ML (<0.05)
[2016-10-15 06:14] LABS: SCHISTOCYTES OCC (0-2/OIF); TARGET CELLS OCC (1-2/OIF) (0-1/OIF)
[2016-10-15 08:02] LABS: PATH REVIEW SEE PATHOLOGY REPORT
[2016-10-15 09:00] LABS: HEPATITIS B CORE AB IGM NON-REACTIVE (NON-REAC); HEPATITIS C ANTIBODY NON-REACTIVE (NON-REACT)
[2016-10-15 09:01] LABS: HIV COMBO NON-REACTIVE (NON REAC)
[2016-10-15 09:02] LABS: HEP A ANTIBODY IGM NON-REACTIVE (NON-REACT)
[2016-10-15 09:04] LABS: HEPATITIS B SURFACE ANTIGEN NON-REACTIVE (NON-REACT)
[2016-10-15 11:00] LABS: ANA PATTERN NUCLEOLAR
[2016-10-15 16:15] LABS: BASOPHILS 0.1 %; BASOPHILS ABSOLUTE 0.01 10/3/uL (0.0-0.16); EOSINOPHILS 0 %; HEMATOCRIT 31.4 % (36.0-48.0); HEMOGLOBIN 10.3 g/dL (12.0-16.0); IMMATURE GRANULOCYTES 0.3 %; IMMATURE GRANULOCYTES ABSOLUTE 0.02 10/3/uL (0.0-0.11); LYMPHOCYTES 10.2 %; LYMPHOCYTES ABSOLUTE 0.69 10/3/uL (0.67-4.30); MEAN CORPUS HGB CONC 32.8 g/dL (32.0-36.0); MEAN CORPUSCULAR HEMOGLOB 26.9 pg (26.0-34.0); MONOCYTES 3.2 %; MONOCYTES ABSOLUTE 0.22 10/3/uL (0.21-1.20); NEUTROPHILS 86.2 %; NEUTROPHILS ABSOLUTE 5.84 10/3/uL (2.02-8.40); RBC DISTRIBUTION WIDTH 14.8 % (12.0-16.0); RED CELL COUNT 3.83 10/6/uL (4.0-5.6)
[2016-10-15 16:22] LABS: PLATELET COUNT 5 10/3/uL (150-400); WHITE BLOOD CELLS 6.8 10/3/uL (4.5-10.5)
[2016-10-15 16:24] LABS: TROPONIN I 2.93 NG/ML (<0.05)
[2016-10-15 21:04] LABS: MANUAL DIFF NO %
[2016-10-15 22:17] LABS: ASCORBIC ACID (UR NOT ORDER) NEG (NEG); BILIRUBIN, URINE NEGATIVE (NEG); KETONE, URINE NEGATIVE (NEG); LEUKOCYTE ESTERASE(NOT OR NEG (NEG); WBC (NOT ORDERED) (RFLEX) 2 (0-5)
[2016-10-16 05:03] LABS: A/G RATIO 0.9 (0.7-1.9); ALBUMIN 2.9 G/DL (3.5-5.0); CALCIUM, SERUM 8.4 MG/DL (8.5-10.4); CHLORIDE, SERUM 107 MMOL/L (96-112); CO2 (CARBON DIOXIDE) 26 MMOL/L (24-34); GLOBULIN 3.2 G/DL (2.5-4.1); GLUCOSE, SERUM 143 MG/DL (60-99); POTASSIUM, SERUM 4.3 MMOL/L (3.5-5.3); SGOT(AST) 80 U/L (5-40); SGPT(ALT) 25 U/L (5-65); SODIUM, SERUM 142 MMOL/L (135-148); TOTAL BILIRUBIN 1.7 MG/DL (0-1.2); TOTAL PROTEIN 6.1 G/DL (6.0-8.5)
[2016-10-16 05:04] LABS: ALKALINE PHOSPHATASE 95 U/L (45-117); BUN (BLOOD UREA NITROGEN) 48 MG/DL (6-23); CREATININE 1.69 MG/DL (0.55-1.02); GFR AFRICAN AMERICAN 34 ML/MIN (>=60); GFR NON AFRICAN AMERICAN 30 ML/MIN (>=60)
[2016-10-16 05:14] LABS: BASOPHILS 0.1 %; BASOPHILS ABSOLUTE 0.01 10/3/uL (0.0-0.16); EOSINOPHILS 0 %; HEMOGLOBIN 8.7 g/dL (12.0-16.0); IMMATURE GRANULOCYTES 0.5 %; IMMATURE GRANULOCYTES ABSOLUTE 0.04 10/3/uL (0.0-0.11); LYMPHOCYTES 10.9 %; LYMPHOCYTES ABSOLUTE 0.92 10/3/uL (0.67-4.30); MEAN CORPUS HGB CONC 34.4 g/dL (32.0-36.0); MEAN CORPUSCULAR HEMOGLOB 27.6 pg (26.0-34.0); MEAN CORPUSCULAR VOLUME 80.3 fL (80-100); MONOCYTES 5.5 %; MONOCYTES ABSOLUTE 0.46 10/3/uL (0.21-1.20); NUCLEATED RED BLOOD CELLS 0.2 /100WBC (0-0); RBC DISTRIBUTION WIDTH 14.9 % (12.0-16.0); RED CELL COUNT 3.15 10/6/uL (4.0-5.6); WHITE BLOOD CELLS 8.4 10/3/uL (4.5-10.5)
[2016-10-16 05:24] LABS: HEMATOCRIT 25.3 % (36.0-48.0); MANUAL DIFF NO %; PLATELET COUNT 20 10/3/uL (150-400)
[2016-10-16 06:16] LABS: POIKILOCYTOSIS 1+ (5-10/OIF) (0-5/OIF)
[2016-10-16 07:54] LABS: ALBUMIN RELAT % 57.4 %
[2016-10-16 08:58] LABS: RETICULOCYTE COUNT ABSOLUTE 93.6 10/3/uL (20.2-119.8)
[2016-10-16 11:15] LABS: A/G 1.25 RATIO (0.9-2.10); ALB RELATIVE % 55.6 % (60.0-89.0); ALBUMIN (ELECTRO) 3.34 GM/DL (3.2-5.5); ALPHA 1 (ELECTRO) 0.21 GM/DL (0.1-0.4); ALPHA 1 RELAT % (NOT ORD) 3.5 % (1.0-4.0); ALPHA 2 (ELECTRO) 0.58 GM/DL (0.5-1.10); ALPHA 2 RELAT % 9.7 % (4.5-26.0); BETA GLOBULIN (SPE) 0.79 GM/DL (0.60-1.30); BETA RELATIVE % 13.1 % (9.0-22.0); GAMMA GLOBULIN (SPE) 1.09 G/DL (0.70-1.60); GAMMA RELAT % 18.1 % (6.0-22.0)
[2016-10-17 04:41] LABS: BASOPHILS 0.1 %; BASOPHILS ABSOLUTE 0.01 10/3/uL (0.0-0.16); EOSINOPHILS 0 %; HEMOGLOBIN 7.4 g/dL (12.0-16.0); IMMATURE GRANULOCYTES 1.1 %; LYMPHOCYTES 19.2 %; LYMPHOCYTES ABSOLUTE 1.72 10/3/uL (0.67-4.30); MEAN CORPUS HGB CONC 34.9 g/dL (32.0-36.0); MEAN CORPUSCULAR VOLUME 80.3 fL (80-100); MONOCYTES 8.9 %; NEUTROPHILS 70.7 %; NEUTROPHILS ABSOLUTE 6.32 10/3/uL (2.02-8.40); RBC DISTRIBUTION WIDTH 16.2 % (12.0-16.0); RED CELL COUNT 2.64 10/6/uL (4.0-5.6)
[2016-10-17 04:45] LABS: HEMATOCRIT 21.2 % (36.0-48.0); PLATELET COUNT 44 10/3/uL (150-400)
[2016-10-17 04:46] LABS: MANUAL DIFF NO %
[2016-10-17 04:57] LABS: ALBUMIN 2.7 G/DL (3.5-5.0); ALKALINE PHOSPHATASE 84 U/L (45-117); CALCIUM, SERUM 8.4 MG/DL (8.5-10.4); CHLORIDE, SERUM 108 MMOL/L (96-112); CO2 (CARBON DIOXIDE) 25 MMOL/L (24-34); GFR AFRICAN AMERICAN 40 ML/MIN (>=60); GFR NON AFRICAN AMERICAN 34 ML/MIN (>=60); GLUCOSE, SERUM 137 MG/DL (60-99); POTASSIUM, SERUM 4.8 MMOL/L (3.5-5.3); SGOT(AST) 72 U/L (5-40); SGPT(ALT) 33 U/L (5-65); SODIUM, SERUM 141 MMOL/L (135-148); TOTAL PROTEIN 6.6 G/DL (6.0-8.5)
[2016-10-17 05:02] LABS: A/G RATIO 0.7 (0.7-1.9); BUN (BLOOD UREA NITROGEN) 54 MG/DL (6-23); GLOBULIN 3.9 G/DL (2.5-4.1); TOTAL BILIRUBIN 1.2 MG/DL (0-1.2)
[2016-10-17 05:13] LABS: SCHISTOCYTES OCC (0-2/OIF)
[2016-10-17 05:14] LABS: TARGET CELLS OCC (1-2/OIF) (0-1/OIF)
[2016-10-17 17:52] LABS: FERRITIN 677 NG/ML (8-252)
[2016-10-18 07:58] LABS: BUN (BLOOD UREA NITROGEN) 63 MG/DL (6-23); CALCIUM, SERUM 8.5 MG/DL (8.5-10.4); CHLORIDE, SERUM 107 MMOL/L (96-112); CO2 (CARBON DIOXIDE) 22 MMOL/L (24-34); CREATININE 1.76 MG/DL (0.55-1.02); GFR AFRICAN AMERICAN 33 ML/MIN (>=60); GFR NON AFRICAN AMERICAN 28 ML/MIN (>=60); GLUCOSE, SERUM 162 MG/DL (60-99); POTASSIUM, SERUM 4.5 MMOL/L (3.5-5.3); SODIUM, SERUM 140 MMOL/L (135-148)
[2016-10-18 09:04] LABS: MEAN CORPUS HGB CONC 33.9 g/dL (32.0-36.0); MEAN CORPUSCULAR HEMOGLOB 27.4 pg (26.0-34.0); MEAN CORPUSCULAR VOLUME 80.8 fL (80-100); NUCLEATED RED BLOOD CELLS 40.7 /100WBC (0-0); RBC DISTRIBUTION WIDTH 17.9 % (12.0-16.0); RED CELL COUNT 2.34 10/6/uL (4.0-5.6); WHITE BLOOD CELLS 10.9 10/3/uL (4.5-10.5)
[2016-10-18 09:05] LABS: HEMATOCRIT 18.9 % (36.0-48.0); HEMOGLOBIN 6.4 g/dL (12.0-16.0); PLATELET COUNT 8 10/3/uL (150-400)
[2016-10-18 09:07] LABS: MANUAL DIFF YES %
[2016-10-18 09:22] LABS: ANISOCYTOSIS 1+ (5-10/OIF) (0-5/OIF); BAND NEUTROPHILS 6 %; IMMATURE GRANS ABSOLUTE (CALC) 0.33 10/3/uL (0.0-0.11); LYMPHOCYTES 7 %; LYMPHOCYTES ABSOLUTE (CALC) 0.76 10/3/uL (0.67-4.30); METAMYELOCYTES 3 %; MONOCYTES 3 %; MONOCYTES ABSOLUTE (CALC) 0.33 10/3/uL (0.21-1.20); NEUTROPHILS ABSOLUTE (CALC) 9.48 10/3/uL (2.02-8.40); SCHISTOCYTES OCC (0-2/OIF); SEGMENTED NEUTROPHIL (0) 81 %; TOTAL NUCLEATED CELLS 100
[2016-10-18 10:04] LABS: BE (BASE EXCESS) -2.5 MEQ/L (0 +/- 2.5); CARBOXYHEMOGLOBIN 1.2 % (0-3); HCO3 (ACTUAL BICARBONATE) 20.5 MEQ/L (23-27); HEMOBLOGIN CONTENT 6.2 G/DL (12-16); INSTRUMENT SERIAL # 11843; METHEMOGLOBIN 0.7 % (0-3); O2 CONTENT 8.5 VOL% (18-24); OPERATOR ID 18642; PCO2 (CO2 TENSION) 27 MMHG (35-45); PO2 (O2 TENSION) 95 MMHG (79-93); SAMPLE Arterial; pH 7.49 (7.37-7.43)
[2016-10-18 17:19] LABS: INTERNATIONAL NORMAL RATI 1.6 UNITS (-); PARTIAL THROMBO TIME 23.3 SEC (22.5-37.2)
[2016-10-18 17:20] LABS: PROTIME (NOT ORD) 19.3 SEC (12.0-14.5)
[2016-10-18 17:25] LABS: A/G RATIO 0.6 (0.7-1.9); ALBUMIN 2.9 G/DL (3.5-5.0); ALKALINE PHOSPHATASE 89 U/L (45-117); CALCIUM, SERUM 8.2 MG/DL (8.5-10.4); CHLORIDE, SERUM 106 MMOL/L (96-112); CO2 (CARBON DIOXIDE) 19 MMOL/L (24-34); CREATININE 1.87 MG/DL (0.55-1.02); GFR AFRICAN AMERICAN 30 ML/MIN (>=60); GFR NON AFRICAN AMERICAN 26 ML/MIN (>=60); GLOBULIN 4.5 G/DL (2.5-4.1); GLUCOSE, SERUM 174 MG/DL (60-99); PHOSPHORUS, SERUM 4.4 MG/DL (2.5-4.5); POTASSIUM, SERUM 5.1 MMOL/L (3.5-5.3); SGPT(ALT) 97 U/L (5-65); SODIUM, SERUM 139 MMOL/L (135-148); TOTAL PROTEIN 7.4 G/DL (6.0-8.5)
[2016-10-18 17:27] LABS: BUN (BLOOD UREA NITROGEN) 67 MG/DL (6-23); SGOT(AST) 212 U/L (5-40)
[2016-10-19 03:28] LABS: ASCORBIC ACID (UR NOT ORDER) NEG (NEG); BILIRUBIN, URINE NEGATIVE (NEG); KETONE, URINE NEGATIVE (NEG); LEUKOCYTE ESTERASE(NOT OR TRACE (NEG); WBC (NOT ORDERED) (RFLEX) 12 (0-5)
[2016-10-19 03:48] LABS: MEAN CORPUS HGB CONC 33.6 g/dL (32.0-36.0); MEAN CORPUSCULAR HEMOGLOB 27.2 pg (26.0-34.0); MEAN CORPUSCULAR VOLUME 81.1 fL (80-100); NUCLEATED RED BLOOD CELLS 199.7 /100WBC (0-0); RED CELL COUNT 3.49 10/6/uL (4.0-5.6); WHITE BLOOD CELLS 11.2 10/3/uL (4.5-10.5)
[2016-10-19 03:49] LABS: HEMATOCRIT 28.3 % (36.0-48.0); HEMOGLOBIN 9.5 g/dL (12.0-16.0); MANUAL DIFF YES %; PLATELET COUNT 9 10/3/uL (150-400)
[2016-10-19 03:55] LABS: BUN (BLOOD UREA NITROGEN) 70 MG/DL (6-23); CALCIUM, SERUM 8.4 MG/DL (8.5-10.4); CHLORIDE, SERUM 105 MMOL/L (96-112); CO2 (CARBON DIOXIDE) 22 MMOL/L (24-34); CREATININE 1.75 MG/DL (0.55-1.02); GFR AFRICAN AMERICAN 33 ML/MIN (>=60); GFR NON AFRICAN AMERICAN 28 ML/MIN (>=60); GLUCOSE, SERUM 196 MG/DL (60-99); POTASSIUM, SERUM 4.4 MMOL/L (3.5-5.3); SODIUM, SERUM 145 MMOL/L (135-148)
[2016-10-19 04:04] LABS: PHOSPHORUS, SERUM 5.5 MG/DL (2.5-4.5)
[2016-10-19 04:08] LABS: BAND NEUTROPHILS 3 %; IMMATURE GRANS ABSOLUTE (CALC) 0.45 10/3/uL (0.0-0.11); LYMPHOCYTES 11 %; LYMPHOCYTES ABSOLUTE (CALC) 1.23 10/3/uL (0.67-4.30); METAMYELOCYTES 4 %; MONOCYTES 6 %; MONOCYTES ABSOLUTE (CALC) 0.67 10/3/uL (0.21-1.20); NEUTROPHILS ABSOLUTE (CALC) 8.85 10/3/uL (2.02-8.40); SEGMENTED NEUTROPHIL (0) 76 %; TOTAL NUCLEATED CELLS 100
[2016-10-19 04:09] LABS: POLYCHROMASIA 2+ (5-10/OIF) (0-1/OIF); SCHISTOCYTES OCC (0-2/OIF); TARGET CELLS FEW (3-10/OIF) (0-1/OIF)
[2016-10-20 04:54] LABS: HEMATOCRIT 25.8 % (36.0-48.0); HEMOGLOBIN 8.8 g/dL (12.0-16.0); MEAN CORPUS HGB CONC 34.1 g/dL (32.0-36.0); MEAN CORPUSCULAR HEMOGLOB 28.3 pg (26.0-34.0); RBC DISTRIBUTION WIDTH 16.8 % (12.0-16.0); RED CELL COUNT 3.11 10/6/uL (4.0-5.6); WHITE BLOOD CELLS 11.2 10/3/uL (4.5-10.5)
[2016-10-20 04:58] LABS: MANUAL DIFF YES %; PLATELET COUNT 16 10/3/uL (150-400)
[2016-10-20 05:03] LABS: ALBUMIN 2.8 G/DL (3.5-5.0); CALCIUM, SERUM 8.1 MG/DL (8.5-10.4); CHLORIDE, SERUM 107 MMOL/L (96-112); CREATININE 1.33 MG/DL (0.55-1.02); GFR AFRICAN AMERICAN 46 ML/MIN (>=60); GFR NON AFRICAN AMERICAN 40 ML/MIN (>=60); GLUCOSE, SERUM 164 MG/DL (60-99); SODIUM, SERUM 149 MMOL/L (135-148)
[2016-10-20 05:07] LABS: BUN (BLOOD UREA NITROGEN) 62 MG/DL (6-23); CO2 (CARBON DIOXIDE) 32 MMOL/L (24-34); PHOSPHORUS, SERUM 3.8 MG/DL (2.5-4.5)
[2016-10-20 05:24] LABS: BAND NEUTROPHILS 1 %; LYMPHOCYTES 6 %; LYMPHOCYTES ABSOLUTE (CALC) 0.67 10/3/uL (0.67-4.30); MONOCYTES 6 %; MONOCYTES ABSOLUTE (CALC) 0.67 10/3/uL (0.21-1.20); NEUTROPHILS ABSOLUTE (CALC) 9.86 10/3/uL (2.02-8.40); SEGMENTED NEUTROPHIL (0) 87 %; TOTAL NUCLEATED CELLS 100
[2016-10-20 05:25] LABS: PLATELET ESTIMATE DEC (ADEQUATE); RBC MORPHOLOGY ABN (NORMAL)
[2016-10-20 14:11] LABS: HEPARIN-INDUCED PLATELET AB NEGATIVE (NEGATIVE); HIT PATIENT O.D. 0.085 OD (0.000-0.299)
[2016-10-21 03:49] LABS: HEMATOCRIT 26.7 % (36.0-48.0); HEMOGLOBIN 8.7 g/dL (12.0-16.0); MEAN CORPUS HGB CONC 32.6 g/dL (32.0-36.0); MEAN CORPUSCULAR VOLUME 85.9 fL (80-100); NUCLEATED RED BLOOD CELLS 130.3 /100WBC (0-0); PLATELET COUNT 35 10/3/uL (150-400); RBC DISTRIBUTION WIDTH 18.1 % (12.0-16.0); RED CELL COUNT 3.11 10/6/uL (4.0-5.6); WHITE BLOOD CELLS 12.3 10/3/uL (4.5-10.5)
[2016-10-21 03:50] LABS: MANUAL DIFF YES %
[2016-10-21 03:53] LABS: ALBUMIN 2.7 G/DL (3.5-5.0); CALCIUM, SERUM 7.8 MG/DL (8.5-10.4); CHLORIDE, SERUM 104 MMOL/L (96-112); CO2 (CARBON DIOXIDE) 31 MMOL/L (24-34); CREATININE 1.21 MG/DL (0.55-1.02); GFR AFRICAN AMERICAN 51 ML/MIN (>=60); GFR NON AFRICAN AMERICAN 44 ML/MIN (>=60); GLUCOSE, SERUM 148 MG/DL (60-99); PHOSPHORUS, SERUM 3.5 MG/DL (2.5-4.5); POTASSIUM, SERUM 3.7 MMOL/L (3.5-5.3); SODIUM, SERUM 145 MMOL/L (135-148)
[2016-10-21 03:54] LABS: BUN (BLOOD UREA NITROGEN) 47 MG/DL (6-23)
[2016-10-21 06:13] LABS: SEGMENTED NEUTROPHIL (0) 68 %; TOTAL NUCLEATED CELLS 100
[2016-10-21 06:14] LABS: ANISOCYTOSIS 1+ (5-10/OIF) (0-5/OIF); BAND NEUTROPHILS 6 %; IMMATURE GRANS ABSOLUTE (CALC) 0.25 10/3/uL (0.0-0.11); LYMPHOCYTES 16 %; LYMPHOCYTES ABSOLUTE (CALC) 1.97 10/3/uL (0.67-4.30); METAMYELOCYTES 2 %; MONOCYTES 8 %; MONOCYTES ABSOLUTE (CALC) 0.98 10/3/uL (0.21-1.20)
[2016-10-21 06:15] LABS: BASOPHILIC STIPPLING 1+ (2-5/OIF) (0-1/OIF); POIKILOCYTOSIS 1+ (5-10/OIF) (0-5/OIF); SCHISTOCYTES OCC (0-2/OIF); TOXIC GRANULATION 1+
[2016-10-21 06:16] LABS: POLYCHROMASIA 2+ (5-10/OIF) (0-1/OIF)
[2016-10-21 07:45] LABS: HAPTOGLOBIN <10 mg/dL (30-200)
[2016-10-21 17:23] LABS: ANTI-CARDIOLIPIN ANTIBODY IGA 4 CU (0-20)
[2016-10-21 21:53] LABS: BASOPHILS 0.3 %; BASOPHILS ABSOLUTE 0.04 10/3/uL (0.0-0.16); EOSINOPHILS 0 %; HEMOGLOBIN 9.3 g/dL (12.0-16.0); IMMATURE GRANULOCYTES 2.5 %; IMMATURE GRANULOCYTES ABSOLUTE 0.31 10/3/uL (0.0-0.11); LYMPHOCYTES 4.8 %; LYMPHOCYTES ABSOLUTE 0.58 10/3/uL (0.67-4.30); MEAN CORPUS HGB CONC 31.3 g/dL (32.0-36.0); MEAN CORPUSCULAR HEMOGLOB 27.7 pg (26.0-34.0); MEAN CORPUSCULAR VOLUME 88.4 fL (80-100); MONOCYTES 5.7 %; NEUTROPHILS 86.7 %; NEUTROPHILS ABSOLUTE 10.55 10/3/uL (2.02-8.40); NUCLEATED RED BLOOD CELLS 74.2 /100WBC (0-0); RED CELL COUNT 3.36 10/6/uL (4.0-5.6); WHITE BLOOD CELLS 12.2 10/3/uL (4.5-10.5)
[2016-10-21 21:57] LABS: HEMATOCRIT 29.7 % (36.0-48.0); MANUAL DIFF NO %; PLATELET COUNT 57 10/3/uL (150-400)
[2016-10-21 22:04] LABS: BUN (BLOOD UREA NITROGEN) 39 MG/DL (6-23); CALCIUM, SERUM 8.4 MG/DL (8.5-10.4); CHLORIDE, SERUM 103 MMOL/L (96-112); CO2 (CARBON DIOXIDE) 28 MMOL/L (24-34); CREATININE 1.03 MG/DL (0.55-1.02); GFR AFRICAN AMERICAN 62 ML/MIN (>=60); GFR NON AFRICAN AMERICAN 54 ML/MIN (>=60); GLUCOSE, SERUM 161 MG/DL (60-99); SODIUM, SERUM 143 MMOL/L (135-148)
[2016-10-21 22:14] LABS: ANISOCYTOSIS 1+ (5-10/OIF) (0-5/OIF); PLATELET ESTIMATE DEC (ADEQUATE); POLYCHROMASIA 2+ (5-10/OIF) (0-1/OIF)
[2016-10-21 22:15] LABS: SCHISTOCYTES OCC (0-2/OIF)
[2016-10-21 23:00] LABS: DRVVT 46.3 sec (31.8-45.7); DRVVT CONFIRM RATIO CHG ND; DRVVT MIX RATIO 1.1 (0.0-1.2); DRVVT MIX RATIO CHG YES
[2016-10-22 03:43] LABS: HEMATOCRIT 28.3 % (36.0-48.0); HEMOGLOBIN 9.1 g/dL (12.0-16.0); MANUAL DIFF YES %; MEAN CORPUS HGB CONC 32.2 g/dL (32.0-36.0); MEAN CORPUSCULAR HEMOGLOB 28.6 pg (26.0-34.0); PLATELET COUNT 54 10/3/uL (150-400); RBC DISTRIBUTION WIDTH 18.6 % (12.0-16.0); RED CELL COUNT 3.18 10/6/uL (4.0-5.6); WHITE BLOOD CELLS 11.6 10/3/uL (4.5-10.5)
[2016-10-22 03:49] LABS: BUN (BLOOD UREA NITROGEN) 41 MG/DL (6-23); CALCIUM, SERUM 7.6 MG/DL (8.5-10.4); CHLORIDE, SERUM 103 MMOL/L (96-112); CREATININE 1.11 MG/DL (0.55-1.02); GFR AFRICAN AMERICAN 57 ML/MIN (>=60); GFR NON AFRICAN AMERICAN 49 ML/MIN (>=60); GLUCOSE, SERUM 145 MG/DL (60-99); POTASSIUM, SERUM 3.9 MMOL/L (3.5-5.3); SODIUM, SERUM 143 MMOL/L (135-148)
[2016-10-22 03:53] LABS: CO2 (CARBON DIOXIDE) 33 MMOL/L (24-34)
[2016-10-22 03:55] LABS: ANISOCYTOSIS 1+ (5-10/OIF) (0-5/OIF); ELLIPTOCYTES 1+ (3-10/OIF) (0-2/OIF); LYMPHOCYTES 4 %; LYMPHOCYTES ABSOLUTE (CALC) 0.46 10/3/uL (0.67-4.30); MONOCYTES 4 %; MONOCYTES ABSOLUTE (CALC) 0.46 10/3/uL (0.21-1.20); NEUTROPHILS ABSOLUTE (CALC) 10.67 10/3/uL (2.02-8.40); PLATELET ESTIMATE DEC (ADEQUATE); POLYCHROMASIA 1+ (2-5/OIF) (0-1/OIF); SCHISTOCYTES OCC (0-2/OIF); SEGMENTED NEUTROPHIL (0) 92 %; TARGET CELLS FEW (3-10/OIF) (0-1/OIF); TOTAL NUCLEATED CELLS 100
[2016-10-23 04:08] LABS: ALBUMIN 2.6 G/DL (3.5-5.0); CALCIUM, SERUM 7.4 MG/DL (8.5-10.4); CHLORIDE, SERUM 101 MMOL/L (96-112); CO2 (CARBON DIOXIDE) 33 MMOL/L (24-34); CREATININE 0.89 MG/DL (0.55-1.02); GFR AFRICAN AMERICAN 75 ML/MIN (>=60); GFR NON AFRICAN AMERICAN 64 ML/MIN (>=60); PHOSPHORUS, SERUM 3.3 MG/DL (2.5-4.5); POTASSIUM, SERUM 3.6 MMOL/L (3.5-5.3); SODIUM, SERUM 144 MMOL/L (135-148)
[2016-10-23 04:10] LABS: HEMATOCRIT 30.5 % (36.0-48.0); HEMOGLOBIN 9.5 g/dL (12.0-16.0); MEAN CORPUS HGB CONC 31.1 g/dL (32.0-36.0); MEAN CORPUSCULAR HEMOGLOB 28.2 pg (26.0-34.0); MEAN CORPUSCULAR VOLUME 90.5 fL (80-100); PLATELET COUNT 90 10/3/uL (150-400); RED CELL COUNT 3.37 10/6/uL (4.0-5.6); WHITE BLOOD CELLS 13.2 10/3/uL (4.5-10.5)
[2016-10-23 04:11] LABS: BUN (BLOOD UREA NITROGEN) 32 MG/DL (6-23); GLUCOSE, SERUM 97 MG/DL (60-99)
[2016-10-23 04:12] LABS: MANUAL DIFF YES %; NUCLEATED RED BLOOD CELLS 25.8 /100WBC (0-0)
[2016-10-23 05:12] LABS: EOSINOPHILS 1 %; EOSINOPHILS ABSOLUTE (CALC) 0.13 10/3/uL (0.0-0.53); IMMATURE GRANS ABSOLUTE (CALC) 0.13 10/3/uL (0.0-0.11); LYMPHOCYTES 18 %; LYMPHOCYTES ABSOLUTE (CALC) 2.38 10/3/uL (0.67-4.30); METAMYELOCYTES 1 %; MONOCYTES 3 %; NEUTROPHILS ABSOLUTE (CALC) 10.16 10/3/uL (2.02-8.40); SEGMENTED NEUTROPHIL (0) 77 %; TOTAL NUCLEATED CELLS 100
[2016-10-23 05:13] LABS: ELLIPTOCYTES 1+ (3-10/OIF) (0-2/OIF); HELMET CELLS OCC (0-2/OIF); HYPOCHROMIA 1+ (3-10/OIF) (0-2/OIF); PLATELET ESTIMATE DEC (ADEQUATE); POLYCHROMASIA 1+ (2-5/OIF) (0-1/OIF); TARGET CELLS FEW (3-10/OIF) (0-1/OIF); TEARDROP SHAPED RBCS OCC (0-2/OIF)
[2016-10-24 03:31] LABS: HEMATOCRIT 30.1 % (36.0-48.0); HEMOGLOBIN 9.5 g/dL (12.0-16.0); MEAN CORPUS HGB CONC 31.6 g/dL (32.0-36.0); MEAN CORPUSCULAR HEMOGLOB 28.8 pg (26.0-34.0); MEAN CORPUSCULAR VOLUME 91.2 fL (80-100); PLATELET COUNT 108 10/3/uL (150-400); RBC DISTRIBUTION WIDTH 20.5 % (12.0-16.0); WHITE BLOOD CELLS 12.8 10/3/uL (4.5-10.5)
[2016-10-24 03:32] LABS: MANUAL DIFF YES %
[2016-10-24 03:37] LABS: ALBUMIN 2.6 G/DL (3.5-5.0); BUN (BLOOD UREA NITROGEN) 31 MG/DL (6-23); CALCIUM, SERUM 7.3 MG/DL (8.5-10.4); CHLORIDE, SERUM 102 MMOL/L (96-112); CO2 (CARBON DIOXIDE) 31 MMOL/L (24-34); GFR AFRICAN AMERICAN 74 ML/MIN (>=60); GFR NON AFRICAN AMERICAN 63 ML/MIN (>=60); PHOSPHORUS, SERUM 3.2 MG/DL (2.5-4.5); POTASSIUM, SERUM 3.8 MMOL/L (3.5-5.3); SODIUM, SERUM 142 MMOL/L (135-148)
[2016-10-24 03:38] LABS: GLUCOSE, SERUM 118 MG/DL (60-99)
[2016-10-24 07:10] LABS: BAND NEUTROPHILS 3 %; IMMATURE GRANS ABSOLUTE (CALC) 0.13 10/3/uL (0.0-0.11); LYMPHOCYTES 18 %; METAMYELOCYTES 1 %; MONOCYTES 2 %; MONOCYTES ABSOLUTE (CALC) 0.26 10/3/uL (0.21-1.20); NEUTROPHILS ABSOLUTE (CALC) 10.11 10/3/uL (2.02-8.40); PLATELET ESTIMATE SLT DEC (ADEQUATE); SEGMENTED NEUTROPHIL (0) 76 %; TOTAL NUCLEATED CELLS 100
[2016-10-24 07:11] LABS: ANISOCYTOSIS 1+ (5-10/OIF) (0-5/OIF)
[2016-10-24 07:22] LABS: HYPOCHROMIA 1+ (3-10/OIF) (0-2/OIF); MACROCYTES 1+ (5-10/OIF) (0-5/OIF); POLYCHROMASIA 1+ (2-5/OIF) (0-1/OIF)
[2016-10-25 06:30] LABS: BASOPHILS 0.1 %; BASOPHILS ABSOLUTE 0.01 10/3/uL (0.0-0.16); EOSINOPHILS 1.2 %; EOSINOPHILS ABSOLUTE 0.13 10/3/uL (0.0-0.53); HEMATOCRIT 27.7 % (36.0-48.0); HEMOGLOBIN 8.9 g/dL (12.0-16.0); IMMATURE GRANULOCYTES 0.6 %; IMMATURE GRANULOCYTES ABSOLUTE 0.06 10/3/uL (0.0-0.11); LYMPHOCYTES 13.5 %; LYMPHOCYTES ABSOLUTE 1.43 10/3/uL (0.67-4.30); MEAN CORPUS HGB CONC 32.1 g/dL (32.0-36.0); MEAN CORPUSCULAR HEMOGLOB 28.9 pg (26.0-34.0); MEAN CORPUSCULAR VOLUME 89.9 fL (80-100); MONOCYTES 4.2 %; MONOCYTES ABSOLUTE 0.44 10/3/uL (0.21-1.20); NEUTROPHILS 80.4 %; PLATELET COUNT 133 10/3/uL (150-400); RBC DISTRIBUTION WIDTH 20.7 % (12.0-16.0); RED CELL COUNT 3.08 10/6/uL (4.0-5.6); WHITE BLOOD CELLS 10.6 10/3/uL (4.5-10.5)
[2016-10-25 06:38] LABS: MANUAL DIFF NO %
[2016-10-25 06:42] LABS: BUN (BLOOD UREA NITROGEN) 25 MG/DL (6-23); CALCIUM, SERUM 7.7 MG/DL (8.5-10.4); CHLORIDE, SERUM 105 MMOL/L (96-112); CO2 (CARBON DIOXIDE) 31 MMOL/L (24-34); CREATININE 0.84 MG/DL (0.55-1.02); GFR AFRICAN AMERICAN 80 ML/MIN (>=60); GFR NON AFRICAN AMERICAN 69 ML/MIN (>=60); GLUCOSE, SERUM 96 MG/DL (60-99); PHOSPHORUS, SERUM 2.9 MG/DL (2.5-4.5); POTASSIUM, SERUM 3.8 MMOL/L (3.5-5.3); SODIUM, SERUM 143 MMOL/L (135-148)
[2016-10-25 06:58] LABS: ANISOCYTOSIS 1+ (5-10/OIF) (0-5/OIF); PLATELET ESTIMATE SLT DEC (ADEQUATE); TARGET CELLS FEW (3-10/OIF) (0-1/OIF)
[2016-10-25 06:59] LABS: RBC MORPHOLOGY ABN (NORMAL); SCHISTOCYTES FEW (3-10/OIF)
[2016-10-26 06:38] LABS: BASOPHILS 0.1 %; BASOPHILS ABSOLUTE 0.01 10/3/uL (0.0-0.16); EOSINOPHILS ABSOLUTE 0.09 10/3/uL (0.0-0.53); HEMOGLOBIN 7.7 g/dL (12.0-16.0); IMMATURE GRANULOCYTES 0.5 %; IMMATURE GRANULOCYTES ABSOLUTE 0.04 10/3/uL (0.0-0.11); LYMPHOCYTES 11.4 %; LYMPHOCYTES ABSOLUTE 0.99 10/3/uL (0.67-4.30); MEAN CORPUS HGB CONC 32.9 g/dL (32.0-36.0); MEAN CORPUSCULAR HEMOGLOB 29.4 pg (26.0-34.0); MEAN CORPUSCULAR VOLUME 89.3 fL (80-100); MEAN PLATELET VOLUME 10.9 fL (9.2-13.0); MONOCYTES 6.7 %; MONOCYTES ABSOLUTE 0.58 10/3/uL (0.21-1.20); NEUTROPHILS 80.3 %; NEUTROPHILS ABSOLUTE 6.94 10/3/uL (2.02-8.40); PLATELET COUNT 171 10/3/uL (150-400); RBC DISTRIBUTION WIDTH 20.2 % (12.0-16.0); RED CELL COUNT 2.62 10/6/uL (4.0-5.6); WHITE BLOOD CELLS 8.7 10/3/uL (4.5-10.5)
[2016-10-26 06:41] LABS: HEMATOCRIT 23.4 % (36.0-48.0); MANUAL DIFF NO %
[2016-10-26 06:53] LABS: ALBUMIN 2.5 G/DL (3.5-5.0); CALCIUM, SERUM 7.5 MG/DL (8.5-10.4); CHLORIDE, SERUM 107 MMOL/L (96-112); CO2 (CARBON DIOXIDE) 29 MMOL/L (24-34); CREATININE 0.75 MG/DL (0.55-1.02); GFR AFRICAN AMERICAN 92 ML/MIN (>=60); GFR NON AFRICAN AMERICAN 79 ML/MIN (>=60); GLUCOSE, SERUM 95 MG/DL (60-99); POTASSIUM, SERUM 3.8 MMOL/L (3.5-5.3); SGOT(AST) 26 U/L (5-40); SGPT(ALT) 18 U/L (5-65); SODIUM, SERUM 144 MMOL/L (135-148)
[2016-10-26 06:55] LABS: ALKALINE PHOSPHATASE 57 U/L (45-117); BUN (BLOOD UREA NITROGEN) 20 MG/DL (6-23); GLOBULIN 2.4 G/DL (2.5-4.1); TOTAL BILIRUBIN 0.5 MG/DL (0-1.2); TOTAL PROTEIN 4.9 G/DL (6.0-8.5)
[2016-10-27 01:52] LABS: ASCORBIC ACID (UR NOT ORDER) NEG (NEG); BILIRUBIN, URINE NEGATIVE (NEG); KETONE, URINE NEGATIVE (NEG); LEUKOCYTE ESTERASE(NOT OR LARGE (NEG); WBC (NOT ORDERED) (RFLEX) 173 (0-5)
[2016-10-27 08:24] LABS: BASOPHILS 0.5 %; BASOPHILS ABSOLUTE 0.04 10/3/uL (0.0-0.16); EOSINOPHILS ABSOLUTE 0.08 10/3/uL (0.0-0.53); HEMOGLOBIN 8.6 g/dL (12.0-16.0); IMMATURE GRANULOCYTES 0.2 %; IMMATURE GRANULOCYTES ABSOLUTE 0.02 10/3/uL (0.0-0.11); LYMPHOCYTES 11.4 %; LYMPHOCYTES ABSOLUTE 0.94 10/3/uL (0.67-4.30); MEAN CORPUS HGB CONC 31.7 g/dL (32.0-36.0); MEAN CORPUSCULAR HEMOGLOB 29.2 pg (26.0-34.0); MEAN CORPUSCULAR VOLUME 91.9 fL (80-100); MEAN PLATELET VOLUME 11.1 fL (9.2-13.0); MONOCYTES 7.5 %; MONOCYTES ABSOLUTE 0.62 10/3/uL (0.21-1.20); NEUTROPHILS 79.4 %; NEUTROPHILS ABSOLUTE 6.55 10/3/uL (2.02-8.40); PLATELET COUNT 185 10/3/uL (150-400); RBC DISTRIBUTION WIDTH 19.5 % (12.0-16.0); RED CELL COUNT 2.95 10/6/uL (4.0-5.6); WHITE BLOOD CELLS 8.3 10/3/uL (4.5-10.5)
[2016-10-27 08:26] LABS: HEMATOCRIT 27.1 % (36.0-48.0)
[2016-10-27 08:40] LABS: BUN (BLOOD UREA NITROGEN) 18 MG/DL (6-23); CALCIUM, SERUM 8.2 MG/DL (8.5-10.4); CHLORIDE, SERUM 108 MMOL/L (96-112); CO2 (CARBON DIOXIDE) 28 MMOL/L (24-34); CREATININE 0.68 MG/DL (0.55-1.02); GFR AFRICAN AMERICAN 101 ML/MIN (>=60); GFR NON AFRICAN AMERICAN 87 ML/MIN (>=60); GLUCOSE, SERUM 89 MG/DL (60-99); POTASSIUM, SERUM 3.5 MMOL/L (3.5-5.3); SODIUM, SERUM 145 MMOL/L (135-148)
[2016-10-27 16:01] LABS: ADAMTS13 ACTIV 5 % (>67); ADAMTS13 INTERP (NOTE) (())
[2016-10-27 17:04] LABS: ASCORBIC ACID (UR NOT ORDER) NEG (NEG); BILIRUBIN, URINE NEGATIVE (NEG); KETONE, URINE NEGATIVE (NEG); LEUKOCYTE ESTERASE(NOT OR SMALL (NEG); WBC (NOT ORDERED) (RFLEX) 55 (0-5)
[2016-10-28 06:28] LABS: BASOPHILS 0.1 %; BASOPHILS ABSOLUTE 0.01 10/3/uL (0.0-0.16); EOSINOPHILS 1.3 %; EOSINOPHILS ABSOLUTE 0.09 10/3/uL (0.0-0.53); HEMATOCRIT 25.6 % (36.0-48.0); HEMOGLOBIN 8.2 g/dL (12.0-16.0); IMMATURE GRANULOCYTES 0.3 %; IMMATURE GRANULOCYTES ABSOLUTE 0.02 10/3/uL (0.0-0.11); LYMPHOCYTES 16.6 %; LYMPHOCYTES ABSOLUTE 1.16 10/3/uL (0.67-4.30); MEAN CORPUSCULAR HEMOGLOB 29.1 pg (26.0-34.0); MEAN CORPUSCULAR VOLUME 90.8 fL (80-100); MEAN PLATELET VOLUME 9.8 fL (9.2-13.0); MONOCYTES 9.9 %; MONOCYTES ABSOLUTE 0.69 10/3/uL (0.21-1.20); NEUTROPHILS 71.8 %; NEUTROPHILS ABSOLUTE 5.01 10/3/uL (2.02-8.40); RED CELL COUNT 2.82 10/6/uL (4.0-5.6)
[2016-10-28 06:29] LABS: MANUAL DIFF NO %; PLATELET COUNT 125 10/3/uL (150-400)
[2016-10-28 06:39] LABS: ALBUMIN 2.7 G/DL (3.5-5.0); BUN (BLOOD UREA NITROGEN) 19 MG/DL (6-23); CALCIUM, SERUM 8.2 MG/DL (8.5-10.4); CHLORIDE, SERUM 109 MMOL/L (96-112); CO2 (CARBON DIOXIDE) 28 MMOL/L (24-34); CREATININE 0.64 MG/DL (0.55-1.02); GFR AFRICAN AMERICAN 103 ML/MIN (>=60); GFR NON AFRICAN AMERICAN 89 ML/MIN (>=60); GLUCOSE, SERUM 92 MG/DL (60-99); POTASSIUM, SERUM 3.5 MMOL/L (3.5-5.3); SGOT(AST) 33 U/L (5-40); SGPT(ALT) 19 U/L (5-65); SODIUM, SERUM 145 MMOL/L (135-148); TOTAL PROTEIN 5.6 G/DL (6.0-8.5)
[2016-10-28 06:40] LABS: A/G RATIO 0.9 (0.7-1.9); ALKALINE PHOSPHATASE 69 U/L (45-117); GLOBULIN 2.9 G/DL (2.5-4.1); TOTAL BILIRUBIN 1.9 MG/DL (0-1.2)
[2016-10-29 06:03] LABS: BASOPHILS 0.2 %; BASOPHILS ABSOLUTE 0.01 10/3/uL (0.0-0.16); EOSINOPHILS 1.7 %; EOSINOPHILS ABSOLUTE 0.09 10/3/uL (0.0-0.53); HEMATOCRIT 23.6 % (36.0-48.0); HEMOGLOBIN 7.8 g/dL (12.0-16.0); IMMATURE GRANULOCYTES 0.2 %; IMMATURE GRANULOCYTES ABSOLUTE 0.01 10/3/uL (0.0-0.11); LYMPHOCYTES 18.6 %; LYMPHOCYTES ABSOLUTE 0.99 10/3/uL (0.67-4.30); MEAN CORPUS HGB CONC 33.1 g/dL (32.0-36.0); MEAN CORPUSCULAR HEMOGLOB 29.3 pg (26.0-34.0); MEAN CORPUSCULAR VOLUME 88.7 fL (80-100); MEAN PLATELET VOLUME 10.6 fL (9.2-13.0); MONOCYTES 9.2 %; MONOCYTES ABSOLUTE 0.49 10/3/uL (0.21-1.20); NEUTROPHILS 70.1 %; NEUTROPHILS ABSOLUTE 3.74 10/3/uL (2.02-8.40); RBC DISTRIBUTION WIDTH 19.2 % (12.0-16.0); RED CELL COUNT 2.66 10/6/uL (4.0-5.6); WHITE BLOOD CELLS 5.3 10/3/uL (4.5-10.5)
[2016-10-29 06:04] LABS: MANUAL DIFF NO %; PLATELET COUNT 58 10/3/uL (150-400)
[2016-10-29 06:20] LABS: A/G RATIO 0.9 (0.7-1.9); ALBUMIN 2.6 G/DL (3.5-5.0); ALKALINE PHOSPHATASE 72 U/L (45-117); BUN (BLOOD UREA NITROGEN) 20 MG/DL (6-23); CHLORIDE, SERUM 110 MMOL/L (96-112); CO2 (CARBON DIOXIDE) 26 MMOL/L (24-34); CREATININE 0.63 MG/DL (0.55-1.02); GFR AFRICAN AMERICAN 103 ML/MIN (>=60); GFR NON AFRICAN AMERICAN 89 ML/MIN (>=60); GLOBULIN 2.8 G/DL (2.5-4.1); GLUCOSE, SERUM 81 MG/DL (60-99); POTASSIUM, SERUM 3.5 MMOL/L (3.5-5.3); SGOT(AST) 41 U/L (5-40); SGPT(ALT) 18 U/L (5-65); SODIUM, SERUM 146 MMOL/L (135-148); TOTAL BILIRUBIN 1.4 MG/DL (0-1.2); TOTAL PROTEIN 5.4 G/DL (6.0-8.5)
[2016-10-29 06:44] LABS: ANISOCYTOSIS 1+ (5-10/OIF) (0-5/OIF); PLATELET ESTIMATE DEC (ADEQUATE); POLYCHROMASIA 1+ (2-5/OIF) (0-1/OIF)
[2016-10-29 06:45] LABS: POIKILOCYTOSIS 1+ (5-10/OIF) (0-5/OIF)
[2016-10-29 06:46] LABS: HELMET CELLS OCC (0-2/OIF); SCHISTOCYTES OCC (0-2/OIF); TEARDROP SHAPED RBCS OCC (0-2/OIF)
[2016-10-29 09:24] LABS: INTERNATIONAL NORMAL RATI 1.2 UNITS (-); PARTIAL THROMBO TIME 28.1 SEC (22.5-37.2)
[2016-10-29 09:25] LABS: PROTIME (NOT ORD) 15.1 SEC (12.0-14.5)
[2016-10-29 09:29] LABS: ALBUMIN 2.7 G/DL (3.5-5.0); BUN (BLOOD UREA NITROGEN) 17 MG/DL (6-23); CALCIUM, SERUM 8.1 MG/DL (8.5-10.4); CHLORIDE, SERUM 111 MMOL/L (96-112); CO2 (CARBON DIOXIDE) 25 MMOL/L (24-34); CREATININE 0.64 MG/DL (0.55-1.02); GFR AFRICAN AMERICAN 103 ML/MIN (>=60); GFR NON AFRICAN AMERICAN 89 ML/MIN (>=60); PHOSPHORUS, SERUM 2.4 MG/DL (2.5-4.5); POTASSIUM, SERUM 3.5 MMOL/L (3.5-5.3); SODIUM, SERUM 144 MMOL/L (135-148)
[2016-10-29 09:30] LABS: GLUCOSE, SERUM 117 MG/DL (60-99)
[2016-10-29 10:32] LABS: HEPATITIS B SURFACE ANTIGEN NON-REACTIVE (NON-REACT)
[2016-10-29 10:59] LABS: HEPATITIS C ANTIBODY NON-REACTIVE (NON-REACT)
[2016-10-29 11:00] LABS: HEPATITIS B CORE AB IGM NON-REACTIVE (NON-REAC); HIV COMBO NON-REACTIVE (NON REAC)
[2016-10-29 11:01] LABS: HEP A ANTIBODY IGM NON-REACTIVE (NON-REACT)
[2016-10-30 06:17] LABS: MEAN CORPUS HGB CONC 32.2 g/dL (32.0-36.0); MEAN CORPUSCULAR HEMOGLOB 29.1 pg (26.0-34.0); MEAN CORPUSCULAR VOLUME 90.4 fL (80-100); RBC DISTRIBUTION WIDTH 19.7 % (12.0-16.0); WHITE BLOOD CELLS 4.2 10/3/uL (4.5-10.5)
[2016-10-30 06:26] LABS: HEMATOCRIT 20.8 % (36.0-48.0); HEMOGLOBIN 6.7 g/dL (12.0-16.0)
[2016-10-30 06:27] LABS: PLATELET COUNT 27 10/3/uL (150-400)
[2016-10-30 06:31] LABS: MANUAL DIFF YES %
[2016-10-30 06:32] LABS: A/G RATIO 1.1 (0.7-1.9); ALBUMIN 2.7 G/DL (3.5-5.0); CHLORIDE, SERUM 107 MMOL/L (96-112); CREATININE 0.67 MG/DL (0.55-1.02); GFR AFRICAN AMERICAN 101 ML/MIN (>=60); GFR NON AFRICAN AMERICAN 87 ML/MIN (>=60); GLOBULIN 2.4 G/DL (2.5-4.1); GLUCOSE, SERUM 97 MG/DL (60-99); POTASSIUM, SERUM 3.4 MMOL/L (3.5-5.3); SGOT(AST) 36 U/L (5-40); SGPT(ALT) 22 U/L (5-65); SODIUM, SERUM 144 MMOL/L (135-148); TOTAL PROTEIN 5.1 G/DL (6.0-8.5)
[2016-10-30 06:35] LABS: BUN (BLOOD UREA NITROGEN) 22 MG/DL (6-23); CO2 (CARBON DIOXIDE) 30 MMOL/L (24-34)
[2016-10-30 06:36] LABS: ALKALINE PHOSPHATASE 57 U/L (45-117); CALCIUM, SERUM 8.1 MG/DL (8.5-10.4); TOTAL BILIRUBIN 0.8 MG/DL (0-1.2)
[2016-10-30 08:00] LABS: ANISOCYTOSIS 1+ (5-10/OIF) (0-5/OIF)
[2016-10-30 08:01] LABS: HELMET CELLS OCC (0-2/OIF)
[2016-10-31 06:29] LABS: BASOPHILS 0.2 %; BASOPHILS ABSOLUTE 0.01 10/3/uL (0.0-0.16); EOSINOPHILS 0 %; HEMATOCRIT 21.1 % (36.0-48.0); IMMATURE GRANULOCYTES 0.3 %; IMMATURE GRANULOCYTES ABSOLUTE 0.02 10/3/uL (0.0-0.11); LYMPHOCYTES 23.1 %; LYMPHOCYTES ABSOLUTE 1.35 10/3/uL (0.67-4.30); MEAN CORPUS HGB CONC 33.2 g/dL (32.0-36.0); MEAN CORPUSCULAR HEMOGLOB 29.5 pg (26.0-34.0); MONOCYTES 8.4 %; MONOCYTES ABSOLUTE 0.49 10/3/uL (0.21-1.20); NEUTROPHILS ABSOLUTE 3.97 10/3/uL (2.02-8.40); RBC DISTRIBUTION WIDTH 19.8 % (12.0-16.0); RED CELL COUNT 2.37 10/6/uL (4.0-5.6); WHITE BLOOD CELLS 5.8 10/3/uL (4.5-10.5)
[2016-10-31 06:33] LABS: MANUAL DIFF NO %; PLATELET COUNT 46 10/3/uL (150-400)
[2016-10-31 06:50] LABS: A/G RATIO 1.1 (0.7-1.9); ALBUMIN 3.2 G/DL (3.5-5.0); ALKALINE PHOSPHATASE 73 U/L (45-117); ANISOCYTOSIS 1+ (5-10/OIF) (0-5/OIF); BUN (BLOOD UREA NITROGEN) 18 MG/DL (6-23); CALCIUM, SERUM 8.5 MG/DL (8.5-10.4); CHLORIDE, SERUM 106 MMOL/L (96-112); CO2 (CARBON DIOXIDE) 31 MMOL/L (24-34); CREATININE 0.69 MG/DL (0.55-1.02); GFR AFRICAN AMERICAN 100 ML/MIN (>=60); GFR NON AFRICAN AMERICAN 86 ML/MIN (>=60); GLOBULIN 2.8 G/DL (2.5-4.1); GLUCOSE, SERUM 112 MG/DL (60-99); POTASSIUM, SERUM 3.6 MMOL/L (3.5-5.3); SGOT(AST) 34 U/L (5-40); SGPT(ALT) 23 U/L (5-65); SODIUM, SERUM 145 MMOL/L (135-148)
[2016-10-31 06:51] LABS: POIKILOCYTOSIS 1+ (5-10/OIF) (0-5/OIF); SCHISTOCYTES OCC (0-2/OIF)
[2016-10-31 06:53] LABS: HELMET CELLS OCC (0-2/OIF)
[2016-11-01 05:36] LABS: BASOPHILS 0.3 %; BASOPHILS ABSOLUTE 0.02 10/3/uL (0.0-0.16); EOSINOPHILS 0.3 %; EOSINOPHILS ABSOLUTE 0.02 10/3/uL (0.0-0.53); HEMATOCRIT 22.1 % (36.0-48.0); IMMATURE GRANULOCYTES 0.3 %; IMMATURE GRANULOCYTES ABSOLUTE 0.02 10/3/uL (0.0-0.11); LYMPHOCYTES 19.8 %; LYMPHOCYTES ABSOLUTE 1.17 10/3/uL (0.67-4.30); MEAN CORPUSCULAR HEMOGLOB 28.7 pg (26.0-34.0); MONOCYTES 5.1 %; NEUTROPHILS 74.2 %; NEUTROPHILS ABSOLUTE 4.37 10/3/uL (2.02-8.40); RBC DISTRIBUTION WIDTH 19.7 % (12.0-16.0); RED CELL COUNT 2.37 10/6/uL (4.0-5.6); WHITE BLOOD CELLS 5.9 10/3/uL (4.5-10.5)
[2016-11-01 05:41] LABS: HEMOGLOBIN 6.8 g/dL (12.0-16.0); MEAN CORPUS HGB CONC 30.8 g/dL (32.0-36.0); MEAN CORPUSCULAR VOLUME 93.2 fL (80-100); PLATELET COUNT 66 10/3/uL (150-400)
[2016-11-01 05:43] LABS: MANUAL DIFF NO %
[2016-11-01 05:46] LABS: A/G RATIO 1.1 (0.7-1.9); ALBUMIN 2.8 G/DL (3.5-5.0); ALKALINE PHOSPHATASE 76 U/L (45-117); CALCIUM, SERUM 8.2 MG/DL (8.5-10.4); CHLORIDE, SERUM 107 MMOL/L (96-112); CO2 (CARBON DIOXIDE) 33 MMOL/L (24-34); CREATININE 0.93 MG/DL (0.55-1.02); GFR AFRICAN AMERICAN 71 ML/MIN (>=60); GFR NON AFRICAN AMERICAN 61 ML/MIN (>=60); GLOBULIN 2.5 G/DL (2.5-4.1); GLUCOSE, SERUM 115 MG/DL (60-99); POTASSIUM, SERUM 3.2 MMOL/L (3.5-5.3); SGOT(AST) 26 U/L (5-40); SGPT(ALT) 23 U/L (5-65); SODIUM, SERUM 148 MMOL/L (135-148); TOTAL PROTEIN 5.3 G/DL (6.0-8.5)
[2016-11-01 06:03] LABS: BUN (BLOOD UREA NITROGEN) 23 MG/DL (6-23); TOTAL BILIRUBIN 0.3 MG/DL (0-1.2)
[2016-11-01 07:31] LABS: PLATELET ESTIMATE DEC (ADEQUATE); POLYCHROMASIA 1+ (2-5/OIF) (0-1/OIF)
[2016-11-01 07:32] LABS: ANISOCYTOSIS 1+ (5-10/OIF) (0-5/OIF); HELMET CELLS OCC (0-2/OIF); HYPOCHROMIA 1+ (3-10/OIF) (0-2/OIF); TARGET CELLS OCC (1-2/OIF) (0-1/OIF); TEARDROP SHAPED RBCS OCC (0-2/OIF); TOXIC GRANULATION 1+; VACUOLATED NEUTROPHILES OCC
[2016-11-01 07:33] LABS: SCHISTOCYTES OCC (0-2/OIF)
[2016-11-01 07:35] LABS: ACANTHOCYTES OCC (0-2/OIF); POIKILOCYTOSIS 1+ (5-10/OIF) (0-5/OIF)
[2016-11-01 07:36] LABS: MACROCYTES 1+ (5-10/OIF) (0-5/OIF); MICROCYTES 1+ (5-10/OIF) (0-5/OIF)
[2016-11-02 07:03] LABS: BASOPHILS 0.3 %; BASOPHILS ABSOLUTE 0.02 10/3/uL (0.0-0.16); EOSINOPHILS 0.2 %; EOSINOPHILS ABSOLUTE 0.01 10/3/uL (0.0-0.53); IMMATURE GRANULOCYTES 0.5 %; IMMATURE GRANULOCYTES ABSOLUTE 0.03 10/3/uL (0.0-0.11); LYMPHOCYTES ABSOLUTE 1.57 10/3/uL (0.67-4.30); MEAN CORPUS HGB CONC 31.7 g/dL (32.0-36.0); MEAN CORPUSCULAR VOLUME 91.6 fL (80-100); MONOCYTES 6.7 %; MONOCYTES ABSOLUTE 0.44 10/3/uL (0.21-1.20); NEUTROPHILS 68.3 %; NEUTROPHILS ABSOLUTE 4.48 10/3/uL (2.02-8.40); PLATELET COUNT 67 10/3/uL (150-400); RBC DISTRIBUTION WIDTH 18.2 % (12.0-16.0); WHITE BLOOD CELLS 6.6 10/3/uL (4.5-10.5)
[2016-11-02 07:11] LABS: HEMATOCRIT 26.2 % (36.0-48.0); HEMOGLOBIN 8.3 g/dL (12.0-16.0); MANUAL DIFF NO %; RED CELL COUNT 2.86 10/6/uL (4.0-5.6)
[2016-11-02 07:14] LABS: BUN (BLOOD UREA NITROGEN) 21 MG/DL (6-23); CALCIUM, SERUM 8.3 MG/DL (8.5-10.4); CHLORIDE, SERUM 104 MMOL/L (96-112); CO2 (CARBON DIOXIDE) 33 MMOL/L (24-34); CREATININE 0.78 MG/DL (0.55-1.02); GFR AFRICAN AMERICAN 87 ML/MIN (>=60); GFR NON AFRICAN AMERICAN 75 ML/MIN (>=60); GLUCOSE, SERUM 93 MG/DL (60-99); POTASSIUM, SERUM 3.1 MMOL/L (3.5-5.3); SODIUM, SERUM 146 MMOL/L (135-148)
[2016-11-02 07:30] LABS: ANISOCYTOSIS 1+ (5-10/OIF) (0-5/OIF); PLATELET ESTIMATE DEC (ADEQUATE)
[2016-11-02 07:31] LABS: HELMET CELLS OCC (0-2/OIF)
[2016-11-03 06:27] LABS: BASOPHILS 0 %; EOSINOPHILS 0.4 %; EOSINOPHILS ABSOLUTE 0.02 10/3/uL (0.0-0.53); HEMATOCRIT 26.9 % (36.0-48.0); HEMOGLOBIN 8.8 g/dL (12.0-16.0); IMMATURE GRANULOCYTES 0.4 %; IMMATURE GRANULOCYTES ABSOLUTE 0.02 10/3/uL (0.0-0.11); LYMPHOCYTES 23.2 %; MEAN CORPUS HGB CONC 32.7 g/dL (32.0-36.0); MEAN CORPUSCULAR HEMOGLOB 29.9 pg (26.0-34.0); MEAN CORPUSCULAR VOLUME 91.5 fL (80-100); MEAN PLATELET VOLUME 11.1 fL (9.2-13.0); MONOCYTES 7.7 %; MONOCYTES ABSOLUTE 0.43 10/3/uL (0.21-1.20); NEUTROPHILS 68.3 %; NEUTROPHILS ABSOLUTE 3.84 10/3/uL (2.02-8.40); PLATELET COUNT 76 10/3/uL (150-400); RBC DISTRIBUTION WIDTH 18.4 % (12.0-16.0); RED CELL COUNT 2.94 10/6/uL (4.0-5.6); WHITE BLOOD CELLS 5.6 10/3/uL (4.5-10.5)
[2016-11-03 06:37] LABS: MANUAL DIFF NO %
[2016-11-03 06:41] LABS: BUN (BLOOD UREA NITROGEN) 18 MG/DL (6-23); CALCIUM, SERUM 8.3 MG/DL (8.5-10.4); CHLORIDE, SERUM 104 MMOL/L (96-112); CO2 (CARBON DIOXIDE) 33 MMOL/L (24-34); CREATININE 0.73 MG/DL (0.55-1.02); GFR AFRICAN AMERICAN 95 ML/MIN (>=60); GFR NON AFRICAN AMERICAN 82 ML/MIN (>=60); GLUCOSE, SERUM 86 MG/DL (60-99); POTASSIUM, SERUM 4.1 MMOL/L (3.5-5.3); SODIUM, SERUM 145 MMOL/L (135-148)
[2016-11-03 07:43] LABS: ANISOCYTOSIS 1+ (5-10/OIF) (0-5/OIF); PLATELET ESTIMATE DEC (ADEQUATE); POLYCHROMASIA 1+ (2-5/OIF) (0-1/OIF)
[2016-11-03 23:04] LABS: ASCORBIC ACID (UR NOT ORDER) NEG (NEG); BILIRUBIN, URINE NEGATIVE (NEG); KETONE, URINE NEGATIVE (NEG); LEUKOCYTE ESTERASE(NOT OR MOD (NEG); WBC (NOT ORDERED) (RFLEX) 9 (0-5)
[2016-11-04 06:05] LABS: BASOPHILS 0.2 %; BASOPHILS ABSOLUTE 0.01 10/3/uL (0.0-0.16); EOSINOPHILS 0.5 %; EOSINOPHILS ABSOLUTE 0.03 10/3/uL (0.0-0.53); HEMATOCRIT 29.7 % (36.0-48.0); HEMOGLOBIN 9.6 g/dL (12.0-16.0); IMMATURE GRANULOCYTES 0.3 %; IMMATURE GRANULOCYTES ABSOLUTE 0.02 10/3/uL (0.0-0.11); LYMPHOCYTES 21.8 %; LYMPHOCYTES ABSOLUTE 1.28 10/3/uL (0.67-4.30); MANUAL DIFF NO %; MEAN CORPUS HGB CONC 32.3 g/dL (32.0-36.0); MEAN CORPUSCULAR HEMOGLOB 30.1 pg (26.0-34.0); MEAN CORPUSCULAR VOLUME 93.1 fL (80-100); MEAN PLATELET VOLUME 10.8 fL (9.2-13.0); MONOCYTES 6.1 %; MONOCYTES ABSOLUTE 0.36 10/3/uL (0.21-1.20); NEUTROPHILS 71.1 %; NEUTROPHILS ABSOLUTE 4.16 10/3/uL (2.02-8.40); NUCLEATED RED BLOOD CELLS 0.5 /100WBC (0-0); PLATELET COUNT 82 10/3/uL (150-400); RBC DISTRIBUTION WIDTH 18.1 % (12.0-16.0); RED CELL COUNT 3.19 10/6/uL (4.0-5.6); WHITE BLOOD CELLS 5.9 10/3/uL (4.5-10.5)
[2016-11-04 06:12] LABS: ALBUMIN 2.9 G/DL (3.5-5.0); BUN (BLOOD UREA NITROGEN) 17 MG/DL (6-23); CALCIUM, SERUM 8.1 MG/DL (8.5-10.4); CHLORIDE, SERUM 104 MMOL/L (96-112); CO2 (CARBON DIOXIDE) 33 MMOL/L (24-34); CREATININE 0.75 MG/DL (0.55-1.02); GFR AFRICAN AMERICAN 92 ML/MIN (>=60); GFR NON AFRICAN AMERICAN 79 ML/MIN (>=60); PHOSPHORUS, SERUM 2.5 MG/DL (2.5-4.5); POTASSIUM, SERUM 3.4 MMOL/L (3.5-5.3); SODIUM, SERUM 145 MMOL/L (135-148)
[2016-11-04 06:15] LABS: GLUCOSE, SERUM 114 MG/DL (60-99)
[2016-11-05 00:42] LABS: POTASSIUM, SERUM 3.2 MMOL/L (3.5-5.3)
[2016-11-05 05:27] LABS: BASOPHILS 0 %; EOSINOPHILS ABSOLUTE 0.05 10/3/uL (0.0-0.53); HEMATOCRIT 30.9 % (36.0-48.0); HEMOGLOBIN 9.8 g/dL (12.0-16.0); IMMATURE GRANULOCYTES 0.6 %; IMMATURE GRANULOCYTES ABSOLUTE 0.03 10/3/uL (0.0-0.11); LYMPHOCYTES 22.7 %; LYMPHOCYTES ABSOLUTE 1.18 10/3/uL (0.67-4.30); MEAN CORPUS HGB CONC 31.7 g/dL (32.0-36.0); MEAN CORPUSCULAR HEMOGLOB 29.5 pg (26.0-34.0); MEAN CORPUSCULAR VOLUME 93.1 fL (80-100); MEAN PLATELET VOLUME 11.8 fL (9.2-13.0); MONOCYTES 10.6 %; MONOCYTES ABSOLUTE 0.55 10/3/uL (0.21-1.20); NEUTROPHILS 65.1 %; NEUTROPHILS ABSOLUTE 3.38 10/3/uL (2.02-8.40); RBC DISTRIBUTION WIDTH 18.2 % (12.0-16.0); RED CELL COUNT 3.32 10/6/uL (4.0-5.6); WHITE BLOOD CELLS 5.2 10/3/uL (4.5-10.5)
[2016-11-05 05:32] LABS: MANUAL DIFF NO %; PLATELET COUNT 108 10/3/uL (150-400)
[2016-11-05 05:44] LABS: ALBUMIN 3.1 G/DL (3.5-5.0); BUN (BLOOD UREA NITROGEN) 15 MG/DL (6-23); CALCIUM, SERUM 8.6 MG/DL (8.5-10.4); CHLORIDE, SERUM 104 MMOL/L (96-112); CO2 (CARBON DIOXIDE) 33 MMOL/L (24-34); CREATININE 0.63 MG/DL (0.55-1.02); GFR AFRICAN AMERICAN 103 ML/MIN (>=60); GFR NON AFRICAN AMERICAN 89 ML/MIN (>=60); PHOSPHORUS, SERUM 2.5 MG/DL (2.5-4.5); SODIUM, SERUM 145 MMOL/L (135-148)
[2016-11-05 05:45] LABS: GLUCOSE, SERUM 74 MG/DL (60-99); POTASSIUM, SERUM 3.9 MMOL/L (3.5-5.3)
[2016-11-05 06:28] LABS: ASCORBIC ACID (UR NOT ORDER) NEG (NEG); BILIRUBIN, URINE NEGATIVE (NEG); KETONE, URINE NEGATIVE (NEG); LEUKOCYTE ESTERASE(NOT OR LARGE (NEG); WBC (NOT ORDERED) (RFLEX) > 182 (0-5)
[2016-11-06 05:57] LABS: BASOPHILS 0 %; EOSINOPHILS 0.4 %; EOSINOPHILS ABSOLUTE 0.02 10/3/uL (0.0-0.53); HEMOGLOBIN 8.8 g/dL (12.0-16.0); IMMATURE GRANULOCYTES 0.2 %; IMMATURE GRANULOCYTES ABSOLUTE 0.01 10/3/uL (0.0-0.11); LYMPHOCYTES 20.4 %; LYMPHOCYTES ABSOLUTE 1.03 10/3/uL (0.67-4.30); MEAN CORPUSCULAR HEMOGLOB 29.7 pg (26.0-34.0); MEAN CORPUSCULAR VOLUME 92.9 fL (80-100); MEAN PLATELET VOLUME 10.7 fL (9.2-13.0); MONOCYTES 8.3 %; MONOCYTES ABSOLUTE 0.42 10/3/uL (0.21-1.20); NEUTROPHILS 70.7 %; NEUTROPHILS ABSOLUTE 3.57 10/3/uL (2.02-8.40); PLATELET COUNT 94 10/3/uL (150-400); RBC DISTRIBUTION WIDTH 17.7 % (12.0-16.0); RED CELL COUNT 2.96 10/6/uL (4.0-5.6); WHITE BLOOD CELLS 5.1 10/3/uL (4.5-10.5)
[2016-11-06 06:04] LABS: HEMATOCRIT 27.5 % (36.0-48.0); MANUAL DIFF NO %
[2016-11-06 06:19] LABS: ALBUMIN 2.6 G/DL (3.5-5.0); BUN (BLOOD UREA NITROGEN) 15 MG/DL (6-23); CALCIUM, SERUM 8.1 MG/DL (8.5-10.4); CHLORIDE, SERUM 104 MMOL/L (96-112); CO2 (CARBON DIOXIDE) 32 MMOL/L (24-34); CREATININE 0.73 MG/DL (0.55-1.02); GFR AFRICAN AMERICAN 95 ML/MIN (>=60); GFR NON AFRICAN AMERICAN 82 ML/MIN (>=60); GLUCOSE, SERUM 77 MG/DL (60-99); POTASSIUM, SERUM 3.4 MMOL/L (3.5-5.3); SODIUM, SERUM 145 MMOL/L (135-148)
[2016-11-06 10:09] LABS: ALKALINE PHOSPHATASE 59 U/L (45-117); DIRECT BILIRUBIN 0.1 MG/DL (0.0-0.4); INDIRECT BILIRUBIN(NOT ORDER) 0.2 MG/DL (0.1-0.9); SGOT(AST) 21 U/L (5-40); SGPT(ALT) 20 U/L (5-65); TOTAL BILIRUBIN 0.3 MG/DL (0-1.2); TOTAL PROTEIN 4.8 G/DL (6.0-8.5)
[2016-11-07 04:58] LABS: BASOPHILS 0 %; EOSINOPHILS 0.2 %; EOSINOPHILS ABSOLUTE 0.01 10/3/uL (0.0-0.53); HEMATOCRIT 26.5 % (36.0-48.0); HEMOGLOBIN 8.4 g/dL (12.0-16.0); IMMATURE GRANULOCYTES 0.7 %; IMMATURE GRANULOCYTES ABSOLUTE 0.03 10/3/uL (0.0-0.11); LYMPHOCYTES 20.6 %; LYMPHOCYTES ABSOLUTE 0.87 10/3/uL (0.67-4.30); MEAN CORPUS HGB CONC 31.7 g/dL (32.0-36.0); MEAN CORPUSCULAR HEMOGLOB 29.5 pg (26.0-34.0); MONOCYTES 10.7 %; MONOCYTES ABSOLUTE 0.45 10/3/uL (0.21-1.20); NEUTROPHILS 67.8 %; NEUTROPHILS ABSOLUTE 2.86 10/3/uL (2.02-8.40); PLATELET COUNT 109 10/3/uL (150-400); RED CELL COUNT 2.85 10/6/uL (4.0-5.6); WHITE BLOOD CELLS 4.2 10/3/uL (4.5-10.5)
[2016-11-07 05:04] LABS: MANUAL DIFF NO %
[2016-11-07 05:12] LABS: A/G RATIO 1.1 (0.7-1.9); ALBUMIN 2.7 G/DL (3.5-5.0); ALKALINE PHOSPHATASE 61 U/L (45-117); BUN (BLOOD UREA NITROGEN) 14 MG/DL (6-23); CALCIUM, SERUM 8.3 MG/DL (8.5-10.4); CHLORIDE, SERUM 106 MMOL/L (96-112); CO2 (CARBON DIOXIDE) 33 MMOL/L (24-34); CREATININE 0.73 MG/DL (0.55-1.02); GFR AFRICAN AMERICAN 95 ML/MIN (>=60); GFR NON AFRICAN AMERICAN 82 ML/MIN (>=60); GLOBULIN 2.4 G/DL (2.5-4.1); SGOT(AST) 21 U/L (5-40); SGPT(ALT) 21 U/L (5-65); SODIUM, SERUM 147 MMOL/L (135-148); TOTAL BILIRUBIN 0.4 MG/DL (0-1.2); TOTAL PROTEIN 5.1 G/DL (6.0-8.5)
[2016-11-07 05:13] LABS: GLUCOSE, SERUM 93 MG/DL (60-99); POTASSIUM, SERUM 3.2 MMOL/L (3.5-5.3)
[2016-11-08 07:06] LABS: BASOPHILS 0 %; EOSINOPHILS 0 %; HEMOGLOBIN 9.3 g/dL (12.0-16.0); IMMATURE GRANULOCYTES 0.4 %; IMMATURE GRANULOCYTES ABSOLUTE 0.02 10/3/uL (0.0-0.11); LYMPHOCYTES 17.4 %; LYMPHOCYTES ABSOLUTE 0.85 10/3/uL (0.67-4.30); MEAN CORPUS HGB CONC 32.1 g/dL (32.0-36.0); MEAN CORPUSCULAR HEMOGLOB 29.8 pg (26.0-34.0); MEAN CORPUSCULAR VOLUME 92.9 fL (80-100); MEAN PLATELET VOLUME 10.5 fL (9.2-13.0); MONOCYTES 9.2 %; MONOCYTES ABSOLUTE 0.45 10/3/uL (0.21-1.20); NEUTROPHILS ABSOLUTE 3.57 10/3/uL (2.02-8.40); PLATELET COUNT 133 10/3/uL (150-400); RBC DISTRIBUTION WIDTH 16.7 % (12.0-16.0); RED CELL COUNT 3.12 10/6/uL (4.0-5.6); WHITE BLOOD CELLS 4.9 10/3/uL (4.5-10.5)
[2016-11-08 07:08] LABS: MANUAL DIFF NO %
[2016-11-08 07:18] LABS: ALBUMIN 2.8 G/DL (3.5-5.0); BUN (BLOOD UREA NITROGEN) 17 MG/DL (6-23); CALCIUM, SERUM 8.1 MG/DL (8.5-10.4); CHLORIDE, SERUM 108 MMOL/L (96-112); CO2 (CARBON DIOXIDE) 30 MMOL/L (24-34); CREATININE 0.73 MG/DL (0.55-1.02); GFR AFRICAN AMERICAN 95 ML/MIN (>=60); GFR NON AFRICAN AMERICAN 82 ML/MIN (>=60); GLUCOSE, SERUM 107 MG/DL (60-99); PHOSPHORUS, SERUM 2.9 MG/DL (2.5-4.5); SODIUM, SERUM 145 MMOL/L (135-148)
[2016-11-09 07:19] LABS: BASOPHILS 0 %; EOSINOPHILS 0 %; HEMATOCRIT 30.2 % (36.0-48.0); HEMOGLOBIN 9.6 g/dL (12.0-16.0); IMMATURE GRANULOCYTES 0.8 %; IMMATURE GRANULOCYTES ABSOLUTE 0.04 10/3/uL (0.0-0.11); LYMPHOCYTES 21.8 %; LYMPHOCYTES ABSOLUTE 1.16 10/3/uL (0.67-4.30); MEAN CORPUS HGB CONC 31.8 g/dL (32.0-36.0); MEAN CORPUSCULAR HEMOGLOB 29.4 pg (26.0-34.0); MEAN CORPUSCULAR VOLUME 92.4 fL (80-100); MEAN PLATELET VOLUME 10.9 fL (9.2-13.0); MONOCYTES 10.7 %; MONOCYTES ABSOLUTE 0.57 10/3/uL (0.21-1.20); NEUTROPHILS 66.7 %; NEUTROPHILS ABSOLUTE 3.56 10/3/uL (2.02-8.40); PLATELET COUNT 151 10/3/uL (150-400); RBC DISTRIBUTION WIDTH 16.3 % (12.0-16.0); RED CELL COUNT 3.27 10/6/uL (4.0-5.6); WHITE BLOOD CELLS 5.3 10/3/uL (4.5-10.5)
[2016-11-09 07:20] LABS: ALBUMIN 2.8 G/DL (3.5-5.0); BUN (BLOOD UREA NITROGEN) 19 MG/DL (6-23); CALCIUM, SERUM 8.3 MG/DL (8.5-10.4); CHLORIDE, SERUM 105 MMOL/L (96-112); CO2 (CARBON DIOXIDE) 31 MMOL/L (24-34); CREATININE 0.83 MG/DL (0.55-1.02); GFR AFRICAN AMERICAN 81 ML/MIN (>=60); GFR NON AFRICAN AMERICAN 70 ML/MIN (>=60); GLUCOSE, SERUM 92 MG/DL (60-99); PHOSPHORUS, SERUM 3.3 MG/DL (2.5-4.5); POTASSIUM, SERUM 3.4 MMOL/L (3.5-5.3); SODIUM, SERUM 145 MMOL/L (135-148)
[2016-11-09 07:31] LABS: MANUAL DIFF NO %
[2016-11-10 06:59] LABS: BASOPHILS 0 %; EOSINOPHILS 0 %; HEMOGLOBIN 9.5 g/dL (12.0-16.0); IMMATURE GRANULOCYTES 0.6 %; IMMATURE GRANULOCYTES ABSOLUTE 0.04 10/3/uL (0.0-0.11); LYMPHOCYTES 18.8 %; LYMPHOCYTES ABSOLUTE 1.19 10/3/uL (0.67-4.30); MEAN CORPUS HGB CONC 31.7 g/dL (32.0-36.0); MEAN CORPUSCULAR HEMOGLOB 29.5 pg (26.0-34.0); MEAN CORPUSCULAR VOLUME 93.2 fL (80-100); MEAN PLATELET VOLUME 10.7 fL (9.2-13.0); MONOCYTES 9.8 %; MONOCYTES ABSOLUTE 0.62 10/3/uL (0.21-1.20); NEUTROPHILS 70.8 %; NEUTROPHILS ABSOLUTE 4.47 10/3/uL (2.02-8.40); PLATELET COUNT 162 10/3/uL (150-400); RBC DISTRIBUTION WIDTH 16.5 % (12.0-16.0); RED CELL COUNT 3.22 10/6/uL (4.0-5.6); WHITE BLOOD CELLS 6.3 10/3/uL (4.5-10.5)
[2016-11-10 07:01] LABS: ALBUMIN 2.5 G/DL (3.5-5.0); ALKALINE PHOSPHATASE 57 U/L (45-117); BUN (BLOOD UREA NITROGEN) 21 MG/DL (6-23); CALCIUM, SERUM 8.4 MG/DL (8.5-10.4); CHLORIDE, SERUM 107 MMOL/L (96-112); CO2 (CARBON DIOXIDE) 29 MMOL/L (24-34); CREATININE 0.94 MG/DL (0.55-1.02); GFR AFRICAN AMERICAN 70 ML/MIN (>=60); GFR NON AFRICAN AMERICAN 60 ML/MIN (>=60); GLOBULIN 2.4 G/DL (2.5-4.1); GLUCOSE, SERUM 96 MG/DL (60-99); POTASSIUM, SERUM 3.7 MMOL/L (3.5-5.3); SGOT(AST) 29 U/L (5-40); SGPT(ALT) 28 U/L (5-65); SODIUM, SERUM 145 MMOL/L (135-148); TOTAL BILIRUBIN 0.8 MG/DL (0-1.2); TOTAL PROTEIN 4.9 G/DL (6.0-8.5)
[2016-11-10 07:02] LABS: MANUAL DIFF NO %
[2016-11-11 05:05] LABS: BASOPHILS 0 %; EOSINOPHILS 0 %; HEMATOCRIT 28.8 % (36.0-48.0); HEMOGLOBIN 9.2 g/dL (12.0-16.0); IMMATURE GRANULOCYTES 0.4 %; IMMATURE GRANULOCYTES ABSOLUTE 0.03 10/3/uL (0.0-0.11); LYMPHOCYTES 13.6 %; LYMPHOCYTES ABSOLUTE 0.95 10/3/uL (0.67-4.30); MEAN CORPUS HGB CONC 31.9 g/dL (32.0-36.0); MEAN CORPUSCULAR HEMOGLOB 29.5 pg (26.0-34.0); MEAN CORPUSCULAR VOLUME 92.3 fL (80-100); MEAN PLATELET VOLUME 11.1 fL (9.2-13.0); MONOCYTES 9.2 %; MONOCYTES ABSOLUTE 0.64 10/3/uL (0.21-1.20); NEUTROPHILS 76.8 %; NEUTROPHILS ABSOLUTE 5.37 10/3/uL (2.02-8.40); PLATELET COUNT 162 10/3/uL (150-400); RBC DISTRIBUTION WIDTH 16.2 % (12.0-16.0); RED CELL COUNT 3.12 10/6/uL (4.0-5.6)
[2016-11-11 05:07] LABS: MANUAL DIFF NO %
[2016-11-11 05:26] LABS: A/G RATIO 1.2 (0.7-1.9); ALBUMIN 2.6 G/DL (3.5-5.0); ALKALINE PHOSPHATASE 55 U/L (45-117); BUN (BLOOD UREA NITROGEN) 20 MG/DL (6-23); CHLORIDE, SERUM 106 MMOL/L (96-112); CO2 (CARBON DIOXIDE) 31 MMOL/L (24-34); CREATININE 0.95 MG/DL (0.55-1.02); GFR AFRICAN AMERICAN 69 ML/MIN (>=60); GFR NON AFRICAN AMERICAN 59 ML/MIN (>=60); GLOBULIN 2.1 G/DL (2.5-4.1); GLUCOSE, SERUM 107 MG/DL (60-99); PHOSPHORUS, SERUM 2.9 MG/DL (2.5-4.5); POTASSIUM, SERUM 3.6 MMOL/L (3.5-5.3); SGOT(AST) 23 U/L (5-40); SGPT(ALT) 22 U/L (5-65); SODIUM, SERUM 144 MMOL/L (135-148); TOTAL BILIRUBIN 0.4 MG/DL (0-1.2); TOTAL PROTEIN 4.7 G/DL (6.0-8.5)
[2016-11-12 06:52] LABS: BASOPHILS 0 %; EOSINOPHILS 0 %; HEMOGLOBIN 9.7 g/dL (12.0-16.0); IMMATURE GRANULOCYTES 0.3 %; IMMATURE GRANULOCYTES ABSOLUTE 0.02 10/3/uL (0.0-0.11); LYMPHOCYTES 16.1 %; MANUAL DIFF NO %; MEAN CORPUS HGB CONC 33.4 g/dL (32.0-36.0); MEAN CORPUSCULAR HEMOGLOB 30.1 pg (26.0-34.0); MEAN CORPUSCULAR VOLUME 90.1 fL (80-100); MEAN PLATELET VOLUME 11.1 fL (9.2-13.0); MONOCYTES 8.3 %; MONOCYTES ABSOLUTE 0.57 10/3/uL (0.21-1.20); NEUTROPHILS 75.3 %; NEUTROPHILS ABSOLUTE 5.16 10/3/uL (2.02-8.40); PLATELET COUNT 168 10/3/uL (150-400); RBC DISTRIBUTION WIDTH 16.1 % (12.0-16.0); RED CELL COUNT 3.22 10/6/uL (4.0-5.6); RETICULOCYTE COUNT 3.4 % (0.5-2.5); RETICULOCYTE COUNT ABSOLUTE 110.1 10/3/uL (20.2-119.8); WHITE BLOOD CELLS 6.9 10/3/uL (4.5-10.5)
[2016-11-12 07:45] LABS: % IRON SAT 35 % (20-50); ALBUMIN 2.5 G/DL (3.5-5.0); ALKALINE PHOSPHATASE 52 U/L (45-117); BUN (BLOOD UREA NITROGEN) 18 MG/DL (6-23); CALCIUM, SERUM 8.3 MG/DL (8.5-10.4); CHLORIDE, SERUM 107 MMOL/L (96-112); CO2 (CARBON DIOXIDE) 30 MMOL/L (24-34); CREATININE 0.83 MG/DL (0.55-1.02); FERRITIN 219 NG/ML (8-252); FOLATE 25.8 NG/ML (>5.2); GFR AFRICAN AMERICAN 81 ML/MIN (>=60); GFR NON AFRICAN AMERICAN 70 ML/MIN (>=60); GLOBULIN 2.4 G/DL (2.5-4.1); GLUCOSE, SERUM 96 MG/DL (60-99); IRON BINDING CAPACITY 200 MCG/DL (225-410); IRON, SERUM 69 MCG/DL (35-150); POTASSIUM, SERUM 3.5 MMOL/L (3.5-5.3); SGOT(AST) 25 U/L (5-40); SGPT(ALT) 20 U/L (5-65); SODIUM, SERUM 144 MMOL/L (135-148); TOTAL BILIRUBIN 0.4 MG/DL (0-1.2); TOTAL PROTEIN 4.9 G/DL (6.0-8.5)
[2016-11-13 05:01] LABS: BASOPHILS 0 %; EOSINOPHILS 0.1 %; EOSINOPHILS ABSOLUTE 0.01 10/3/uL (0.0-0.53); HEMATOCRIT 30.9 % (36.0-48.0); IMMATURE GRANULOCYTES 0.6 %; IMMATURE GRANULOCYTES ABSOLUTE 0.05 10/3/uL (0.0-0.11); LYMPHOCYTES 14.2 %; LYMPHOCYTES ABSOLUTE 1.12 10/3/uL (0.67-4.30); MEAN CORPUS HGB CONC 32.4 g/dL (32.0-36.0); MEAN CORPUSCULAR HEMOGLOB 29.7 pg (26.0-34.0); MEAN CORPUSCULAR VOLUME 91.7 fL (80-100); MONOCYTES 8.1 %; MONOCYTES ABSOLUTE 0.64 10/3/uL (0.21-1.20); NEUTROPHILS ABSOLUTE 6.09 10/3/uL (2.02-8.40); PLATELET COUNT 175 10/3/uL (150-400); RBC DISTRIBUTION WIDTH 15.7 % (12.0-16.0); RED CELL COUNT 3.37 10/6/uL (4.0-5.6); WHITE BLOOD CELLS 7.9 10/3/uL (4.5-10.5)
[2016-11-13 05:03] LABS: MANUAL DIFF NO %
[2016-11-13 05:10] LABS: A/G RATIO 1.1 (0.7-1.9); ALBUMIN 2.5 G/DL (3.5-5.0); ALKALINE PHOSPHATASE 59 U/L (45-117); BUN (BLOOD UREA NITROGEN) 22 MG/DL (6-23); CHLORIDE, SERUM 105 MMOL/L (96-112); CO2 (CARBON DIOXIDE) 31 MMOL/L (24-34); CREATININE 0.62 MG/DL (0.55-1.02); GFR AFRICAN AMERICAN 104 ML/MIN (>=60); GFR NON AFRICAN AMERICAN 89 ML/MIN (>=60); GLOBULIN 2.2 G/DL (2.5-4.1); GLUCOSE, SERUM 98 MG/DL (60-99); SGOT(AST) 29 U/L (5-40); SGPT(ALT) 20 U/L (5-65); SODIUM, SERUM 143 MMOL/L (135-148); TOTAL BILIRUBIN 0.3 MG/DL (0-1.2); TOTAL PROTEIN 4.7 G/DL (6.0-8.5)
[2016-11-14 07:17] LABS: BASOPHILS 0 %; EOSINOPHILS 0.1 %; EOSINOPHILS ABSOLUTE 0.01 10/3/uL (0.0-0.53); HEMATOCRIT 31.7 % (36.0-48.0); HEMOGLOBIN 10.5 g/dL (12.0-16.0); IMMATURE GRANULOCYTES 0.4 %; IMMATURE GRANULOCYTES ABSOLUTE 0.03 10/3/uL (0.0-0.11); LYMPHOCYTES 15.4 %; LYMPHOCYTES ABSOLUTE 1.06 10/3/uL (0.67-4.30); MANUAL DIFF NO %; MEAN CORPUS HGB CONC 33.1 g/dL (32.0-36.0); MEAN CORPUSCULAR HEMOGLOB 30.2 pg (26.0-34.0); MEAN CORPUSCULAR VOLUME 91.1 fL (80-100); MEAN PLATELET VOLUME 10.7 fL (9.2-13.0); MONOCYTES 8.1 %; MONOCYTES ABSOLUTE 0.56 10/3/uL (0.21-1.20); NEUTROPHILS ABSOLUTE 5.22 10/3/uL (2.02-8.40); PLATELET COUNT 159 10/3/uL (150-400); RBC DISTRIBUTION WIDTH 15.9 % (12.0-16.0); RED CELL COUNT 3.48 10/6/uL (4.0-5.6); WHITE BLOOD CELLS 6.9 10/3/uL (4.5-10.5)
[2016-11-14 07:24] LABS: A/G RATIO 1.1 (0.7-1.9); ALBUMIN 2.7 G/DL (3.5-5.0); ALKALINE PHOSPHATASE 63 U/L (45-117); BUN (BLOOD UREA NITROGEN) 18 MG/DL (6-23); CALCIUM, SERUM 8.1 MG/DL (8.5-10.4); CHLORIDE, SERUM 105 MMOL/L (96-112); CO2 (CARBON DIOXIDE) 30 MMOL/L (24-34); CREATININE 0.65 MG/DL (0.55-1.02); GFR AFRICAN AMERICAN 102 ML/MIN (>=60); GFR NON AFRICAN AMERICAN 88 ML/MIN (>=60); GLOBULIN 2.4 G/DL (2.5-4.1); GLUCOSE, SERUM 90 MG/DL (60-99); POTASSIUM, SERUM 3.3 MMOL/L (3.5-5.3); SGOT(AST) 26 U/L (5-40); SGPT(ALT) 23 U/L (5-65); SODIUM, SERUM 144 MMOL/L (135-148); TOTAL BILIRUBIN 0.5 MG/DL (0-1.2); TOTAL PROTEIN 5.1 G/DL (6.0-8.5)
[2017-03-30] MEDS ORDERED: SPIRO25 PO ×2 (16:08→16:16)
[2017-03-30] MEDS ORDERED: ASAB PO (16:09)
[2017-03-30] MEDS ORDERED: FOLIC PO (16:11)
[2017-03-30] MEDS ORDERED: ERYTHROMYCIN O3.5 G1 OPH (16:11)
[2017-03-30] MEDS ORDERED: IMDUR30 PO (16:12)
[2017-03-30] MEDS ORDERED: ALMACONE PO/LIQ (16:13)
[2017-03-30] MEDS ORDERED: ZOFRAN4 PO (16:15)
[2017-03-30] MEDS ORDERED: T PO (16:15)
[2017-03-30] MEDS ORDERED: TOPXL100 PO (16:15)
[2017-03-30] MEDS ORDERED: VITAMIN B-121000 MC1 SL (16:15)
[2017-03-31] MEDS ORDERED: DEMA20 PO (06:37)
[2017-03-31] MEDS ORDERED: LEXAPRO20 PO (06:38)
== END 2016-11-14 22:37 | DRG 545 ==
LOC: ER 18:25 → 4EA 21:52 → IMCU 10-15 08:19 → 6NO 10-17 18:41 → CVICU 10-18 10:01 → 1SO 10-24 17:36
PROVIDERS: Emergency Medicine; Hospitalist; Internal Medicine; Internal Medicine Hematology & Oncology; Internal Medicine Nephrology; Nurse Practitioner Family
PROC: 07DR3ZX Extraction of Iliac Bone Marrow, Percutaneous Approach, Diagnostic (ICD-10-PCS; principal; 2016-10-15)
PROC: 30233P1 Transfusion of Nonautologous Frozen Red Cells into Peripheral Vein, Percutaneous Approach (ICD-10-PCS; 2016-10-18)
PROC: 06HF33Z Insertion of Infusion Device into Right External Iliac Vein, Percutaneous Approach (ICD-10-PCS; 2016-10-19)
PROC: B51F1ZA Fluoroscopy of Right Pelvic (Iliac) Veins using Low Osmolar Contrast, Guidance (ICD-10-PCS; 2016-10-19)
PROC: 05HM33Z Insertion of Infusion Device into Right Internal Jugular Vein, Percutaneous Approach (ICD-10-PCS; 2016-10-29)
PROC: B5131ZA Fluoroscopy of Right Jugular Veins using Low Osmolar Contrast, Guidance (ICD-10-PCS; 2016-10-29)
PROC: 30233K1 Transfusion of Nonautologous Frozen Plasma into Peripheral Vein, Percutaneous Approach (ICD-10-PCS; 2016-11-03)
DX: M31.1 Thrombotic microangiopathy (principal); I63.443 Cerebral infarction due to embolism of bilateral cerebellar arteries; I21.4 Non-ST elevation (NSTEMI) myocardial infarction; G93.41 Metabolic encephalopathy; N17.9 Acute kidney failure, unspecified; I42.8 Other cardiomyopathies; D58.9 Hereditary hemolytic anemia, unspecified; N39.0 Urinary tract infection, site not specified; I50.22 Chronic systolic (congestive) heart failure; R13.10 Dysphagia, unspecified; G40.909 Epilepsy, unspecified, not intractable, without status epilepticus; I34.1 Nonrheumatic mitral (valve) prolapse; R62.7 Adult failure to thrive; I25.10 Atherosclerotic heart disease of native coronary artery without angina pectoris; I11.0 Hypertensive heart disease with heart failure; B96.20 Unspecified Escherichia coli [E. coli] as the cause of diseases classified elsewhere; M10.9 Gout, unspecified; K58.0 Irritable bowel syndrome with diarrhea; I25.2 Old myocardial infarction; Z79.82 Long term (current) use of aspirin; E87.6 Hypokalemia; E88.09 Other disorders of plasma-protein metabolism, not elsewhere classified; Z79.899 Other long term (current) drug therapy; Z87.891 Personal history of nicotine dependence; Z86.718 Personal history of other venous thrombosis and embolism; Z86.711 Personal history of pulmonary embolism; Z96.652 Presence of left artificial knee joint; Z88.2 Allergy status to sulfonamides; Z91.041 Radiographic dye allergy status
CPT/HCPCS: 36415; 36513; 36514; 36558; 36600; 70450; 70544; 70551; 70553; 71010; 77001; 80048; 80053; 80069; 80074; 80076; 81001; 82140; 82272; 82330; 82607; 82728; 82746; 82784; 82785; 82805; 82962; 83010; 83520; 83540; 83550; 83615; 83735; 83880; 84100; 84132; 84155; 84156; 84165; 84166; 84443; 84484; 84550; 85025; 85045; 85390; 85397; 85610; 85613; 85652; 85670; 85730; 86022; 86039; 86140; 86147; 86255; 86850; 86880; 86900; 86901; 86920; 87040; 87045; 87046; 87046-59; 87077; 87086; 87186; 87328; 87329; 87389; 87493; 87493-59; 87641; 87899; 87899-59; 88184; 88185; 88237; 88264; 88305; 88311; 88313; 92610-GN; 93005; 93306; 93308; 93880; 95816; 97110-GO; 97110-GP; 97116-GP; 97162-GP; 97164-GP; 97166-GO; 97168-GO; 97530-GP; 97535-GO; 99152; 99153; 99285; A9270-GY; A9577; C1752; C1769; C9113; J0282; J0360; J0610; J1200; J1568; J1940; J1953; J2250; J2405; J2997; J3010; J3475; J3480; J9310; P9016; P9035; P9044; P9059

== ENCOUNTER 2017-01-02 16:53 | Inpatient (IN) | payer OTHER ==
--- NOTE | ~2017-01-02 | CN ---
Consultation Report [facility] [address] [place]. [address] NAME: MARCE GOMEZ : 41 STATUS : ADM IN [facility]#: [id number] AGE: 71 ADM/REG DATE : 01/02/17 MR#: [id number] REPORT SERV DATE: 01/03/17 DICTATED BY: LETY EPPERSON DATE: 01/03/17 REPORT STATUS : Draft TRANSCRIBED BY: MODDuc DATE: 01/03/17 NEPHROLOGY CONSULTATION DATE OF CONSULTATION: 01/03/2017 INDICATION FOR CONSULTATION: Possible TTP. HISTORY OF PRESENT ILLNESS: Ms. Gomez is a 71-year-old female who was admitted initially in 10/2016 and found to have TTP. At that time, she had multiple embolic events on her MRI with altered mentation. She was initiated on a prolonged course of plasma exchange and was evaluated for a typical TTP, which was found to be negative. She was subsequently released to [facility] for rehab and also spent time in a skilled facility for additional rehab before returning home last week. She then developed some diarrhea and her overall course began to decline. She was admitted for altered mentation. Her LDH is mildly elevated, platelet count is 98,000, and Hematology evaluated her smear and found a mild amount of schistocytes. We were consulted to resume plasmapheresis. The patient has been afebrile and her creatinine is 0.63. PAST MEDICAL HISTORY: Mitral valve prolapse, irritable bowel syndrome, hypertension, headaches, gout, pulmonary embolism in 2012 following left knee surgery, bilateral tubal ligation, osteoarthritis, cardiomyopathy presumed ischemic with ejection fraction of 40%, recent [id number] [place] during her October hospitalization, and asthma. HOME MEDICATIONS: Dicyclomine, Singulair, Prilosec, folic acid, amantadine, aspirin, benazepril, carvedilol, vitamin B12, calcium with vitamin D, furosemide, Keppra, MiraLAX, potassium, prednisone, atorvastatin, BuSpar, erythromycin ophthalmic solution, and Zoloft. ALLERGIES: SULFA DRUGS, FISH PRODUCTS CONTAINING IODINE, AND IODINE DERIVATIVES. FAMILY HISTORY: Mother from complications related to colon cancer. Father had colon cancer and prostate cancer with severe dementia. No history of end-stage renal disease. SOCIAL HISTORY: Remote smoker, stopped 2004. No history of alcohol or drug use. 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 Recently returned to daughter's home last week following discharge from skilled facility. REVIEW OF SYSTEMS: HEENT: No change in visual acuity. Continues with frontal headaches. No epistaxis, pharyngitis, or otic infection. PULMONARY: Occasional shortness of breath with exertion. No cough or hemoptysis. CARDIAC: No chest pain or palpitations. No lower extremity edema. GASTROINTESTINAL: Recent diarrhea with intermittent abdominal pain. No nausea or vomiting. GENITOURINARY: No gross hematuria, pyuria, or dysuria. MUSCULOSKELETAL: Improving strength. Denies arthralgias. Consultation Report [facility] [address] [place]. [address] NAME: MARCE GOMEZ : 41 STATUS : ADM IN [facility]#: [id number] AGE: 71 ADM/REG DATE : 01/02/17 MR#: [id number] REPORT SERV DATE: 01/03/17 DICTATED BY: LETY EPPERSON DATE: 01/03/17 REPORT STATUS : Draft TRANSCRIBED BY: TUNG DATE: 01/03/17 INTEGUMENT: No rash. There is a pressure ulcer that is healing on her right buttock. NEUROLOGIC: Transient confusion, gait abnormality, and weakness noted at home prior to admission. HEMATOLOGIC: Positive for TTP. PSYCHIATRIC: No depression. PHYSICAL EXAMINATION: GENERAL: Pleasant female, somewhat lethargic, but appropriately responsive. VITAL SIGNS: Blood pressure 124/62, temperature 98.1, pulse 95, and respiratory rate 17. HEENT: Nares patent, no discharge. Eyes, no scleral icterus. NECK: No thyromegaly, masses, or bruits. CHEST/LUNGS: Few late crackles posteriorly. No dullness. No wheezing. CARDIAC: Regular rate and rhythm. 1/6 systolic ejection murmur. No gallop. No rub. ABDOMEN: Supple. Normoactive bowel sounds. Nontender. No hepatosplenomegaly. No masses. No bruits. BREASTS: Not performed. PELVIC: Not performed. RECTAL: Not performed. EXTREMITIES: Trace edema. No calf tenderness. DERMIS: No rash. No skin lesions. NEUROLOGIC: No lateralizing weakness. Cranial nerves grossly intact. MUSCULOSKELETAL: No deformity. IMPRESSION: 1. Possible recurrent thrombotic thrombocytopenic purpura. 2. Ischemic cardiomyopathy, ejection fraction 40%. 3. History of embolic CVAs. 4. Hypertension. 5. Chronic frontal headaches. 6. Thrombocytopenia. 7. Anemia. 8. Asthma. 9. Mitral valve prolapse. 10.Irritable bowel syndrome. 11.Gout. 12.History of pulmonary embolus in 2012. PLAN: 1. Plasmapheresis. 2. Lab. ASHLEY/TUNG Consultation Report [facility] [place] [address] [place]. [address] NAME: MARCE GOMEZ : 41 STATUS : ADM IN [facility]#: [id number] AGE: 71 ADM/REG DATE : 01/02/17 MR#: [id number] REPORT SERV DATE: 01/03/17 DICTATED BY: LETY EPPERSON DATE: 01/03/17 REPORT STATUS : Draft TRANSCRIBED BY: TUNG DATE: 01/03/17 Lety Epperson M.D. / [id number] CC: MD Maryana Simmons II, M.D.
--- NOTE | ~2017-01-02 | DS ---
Discharge Summary [facility] [address] [place]. [address] NAME: MARCE VOGEL : 41 STATUS : DIS IN PAT#: [id number] AGE: 71 ADM/REG DATE : 01/02/17 MR#: [id number] REPORT SERV DATE: 01/10/17 DICTATED BY: MAGGIE ACKERMAN DATE: 01/09/17 REPORT STATUS : Draft TRANSCRIBED BY: MODL DATE: 01/09/17 ADMISSION DATE: 01/02/2017 DISCHARGE DATE: 01/09/2017 DISCHARGE DIAGNOSES: 1. Thrombotic thrombocytopenia purpura. 2. Debility. 3. Ischemic cardiomyopathy, ejection fraction 40%. 4. History of pulmonary embolism. 5. Atrial fibrillation with rapid ventricular response. IMAGIN. CT brain, 01/02/2017. Impression: No acute intracranial abnormality seen. 2. Chest x-ray, 01/02/2017. Bibasilar pleural infiltrates. 3. Chest x-ray, 01/03/2017. Satisfactory placement of Vas-Cath. LABORATORY DATA: On 01/08/2017: WBC is 9.9, hemoglobin 10.3, hematocrit 30.8, and platelet count 189. Sodium is 138, potassium is 4.0, chloride is 101, CO2 is 30, BUN is 13, creatinine is 0.59, glucose is 105, calcium is 8.3, phosphorus is 2.7, albumin is 2.1, and LDH is 268. CONSULTATION: Renal, Dr. Idris Winters. HOSPITAL COURSE: Please refer to history and physical dictated by Cynthia Castro, nurse practitioner, on 01/02/2017 for complete admission details as well as consultation notes. This patient is a 71-year-old female, who presented as a direct admission from Dr. Arnold of [facility]'s office. She does present with a history of thrombotic thrombocytopenia purpura. The patient presented in Dr. Arnold's office with confusion and complaints of headache. 1. TTP. The patient has been followed by Dr. Arnold, during her hospital stay. The patient did receive Rituxan one dose. A plan for the patient to receive weekly Rituxan for a total of four weeks, this has been arranged for outpatient therapy. 2. Debility. PT evaluation has been completed. Per their recommendation, the patient is going [facility]. The patient has been working with Physical Therapy during her hospital stay. 3. Ischemic cardiomyopathy with ejection fraction of 40%. The patient has been evaluated. No cardiac needs at this time. She will continue to follow outpatient. The patient states she follows with Dr. Da Silva of [facility], this appointment will be made for two to three weeks. 4. History of PE. The patient has been followed. Imaging has been obtained. 5. Atrial fibrillation with RVR. The patient has been monitored during her hospital stay and she will be followed outpatient per Cardiology. 6. Acute onset transient confusion. The patient was noted with confusion upon admission. Imaging was obtained which is noted above to rule out CVA. Etiology was unclear with Discharge Summary [address] [address] NAME: MARCE VOGEL : 41 STATUS : DIS IN PAT#: [id number] AGE: 71 ADM/REG DATE : 01/02/17 MR#: [id number] REPORT SERV DATE: 01/10/17 DICTATED BY: MAGGIE ACKERMAN DATE: 01/09/17 REPORT STATUS : Draft TRANSCRIBED BY: TUNG DATE: 01/09/17 high concern this was due to TTP. DISCHARGE MEDICATIONS: 1. Symmetrel 100 mg p.o. b.i.d. 2. Lipitor 40 mg one p.o. at bedtime. 3. Lotensin 40 mg one p.o. twice daily. 4. BuSpar 5 mg one p.o. t.i.d. 5. Bentyl 10 mg one p.o. three times daily. 6. Erythromycin ophthalmic ointment apply thin strip both eyes daily. 7. Folic acid 1 mg p.o. at bedtime. 8. Lasix 40 mg one p.o. every morning. 9. Keppra 1000 mg p.o. twice daily. 10.Singulair 10 mg one p.o. daily. 11.Coreg 25 mg p.o. twice daily. 12.Prilosec 40 mg one p.o. every day. 13.Potassium 20 mEq, 40 mEq p.o. every morning. 14.Zoloft 50 mg one p.o. every morning. 15.Prednisone 20 mg, 40 mg p.o. every morning. 16.Tylenol 650 mg p.o. p.r.n. for pain. 17.MiraLAX one pack p.o. daily p.r.n. 18.Aspirin 81 mg one p.o. every morning. 19.Vitamin B12, 250 mcg, 500 mg p.o. every morning. 20.Caltrate 600 mg p.o. daily. The patient is being discharged to rehab in hemodynamically stable condition. The patient will follow up with Dr. Arnold of [facility], will have weekly Rituxan for a total of four treatments. This discharge took greater than 30 minutes. DICTATED BY: MILTON Butts/MODL Maggie Ackerman NP / [id number] CC: Kelvin Anthony M.D.
--- NOTE | ~2017-01-02 | HP ---
History And Physical [facility] [address] [place]. [address] NAME: MARCE VOGEL : 41 STATUS : ADM IN PAT#: [id number] AGE: 71 ADM/REG DATE : 01/02/17 MR#: [id number] REPORT SERV DATE: 01/03/17 DICTATED BY: DATE: REPORT STATUS : Draft TRANSCRIBED BY: MODL DATE: 01/02/17 DATE OF ADMISSION: 01/02/2017 POINT OF ENTRY: Direct admission, referred by Dr. Arnold, [facility]. PRIMARY ONCOLOGIST: Dr. [place] Roe. PRIMARY DATA MANAGEMENT ANALYST: Dr. Michael Rojas. PRIMARY ORDER MANAGER: Dr. He. HISTORY OF PRESENTING ILLNESS: The patient's history was obtained through interview with the patient, her daughter, and son-in-law. Most of the health information was provided by the patient's daughter due to the patient's transient altered mental status. [facility] records were also reviewed. 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 It is noteworthy to mention that the patient was recently admitted to [facility] between the dates of service of 10/15/2016 and 11/16/2016. During previous admission, the patient was diagnosed with thrombotic thrombocytopenia purpura. Discharge diagnoses included TTP with thrombocytopenia, hemolytic anemia, non ST-segment myocardial infarction, urinary tract infection, and metabolic encephalopathy. The patient is currently under the outpatient care of [facility] for management of recent history of thrombotic thrombocytopenia purpura. The patient has been presenting to clinic for weekly lab checks. During initial office visit evaluation today, the patient presented as confused with complaints of a headache. The patient's daughter also reported acute change in patient's mental status over the past 24 hours accompanied by gait abnormality. The patient was referred to [facility] for direct admission for further evaluation and treatment. The patient's daughter reported that the patient was discharged from long-term facility after extended stay this past Thursday. Daughter stated the patient's baseline status has slowly declined since Thursday reporting that the patient woke up yesterday morning with acute onset of increased confusion and one episode of bladder and bowel incontinence. The patient had loose stools for several hours yesterday morning, and the patient complained of urine smelling like "pneumonia." Prior to returning home from long-term, the patient was ambulating approximately 500 feet with one person assist and use of a cane. Since returning home, the patient's ability to ambulate has slowly declined and today patient is essentially unable to walk due to History And Physical [address] [address] NAME: MARCE VOGEL : 41 STATUS : ADM IN PAT#: [id number] AGE: 71 ADM/REG DATE : 01/02/17 MR#: [id number] REPORT SERV DATE: 01/03/17 DICTATED BY: DATE: REPORT STATUS : Draft TRANSCRIBED BY: TUNG DATE: 01/02/17 extreme fatigue and balance issues. The patient's daughter also reported that patient has appeared short of breath with exertion for the last 24 hours with no cough or wheezing noted. Chief patient remained drowsy throughout the interview and exam, but would arouse easily to verbal and tactile stimulation. The patient complained of severe frontal headache, described as "one of the worst headaches I have ever had." The patient described the pain persistent and dull in nature. The patient denied visual disturbances. REVIEW OF SYSTEMS: CONSTITUTIONAL: No fever, sweats, or rigors. EYES: No blurred or double vision. HEENT: Acute onset of severe frontal headache. CARDIOVASCULAR: No chest pain, palpitations, syncope, or near syncopal episodes. RESPIRATORY: Shortness of breath with exertion x24 hours. No cough or wheezing. GASTROINTESTINAL: Acute onset of diarrhea 01/01/2017 early a.m. with abdominal pain, since resolved. MUSCULOSKELETAL: No arthralgia or myalgia or arthritis. INTEGUMENT: Healing pressure ulcer to right buttock present upon admission. NEUROLOGIC: Positive for acute onset of transient confusion, gait abnormality, and weakness. HEMATOLOGIC: Positive for history of TTP. PSYCHIATRIC: No depression, bipolar, or anxiety. : Positive for foul-smelling urine. No dysuria or noted hematuria. ENDOCRINE: No diabetes mellitus or thyroid disease. CODE STATUS: The patient and family expressed wishes for patient to be a full code. HOME MEDICATIONS: Awaiting formal list to be reconciled per pharmacy, preliminary list includes: 1. Dicyclomine 10 mg tablet p.o. three times daily. 2. Singulair 10 mg tablet p.o. daily. 3. Omeprazole 40 mg tablet p.o. daily. 4. Folic acid 1 mg p.o. daily. 5. Amantadine 100 mg tablet p.o. twice daily. 6. Aspirin 81 mg tablet p.o. daily. 7. Benazepril 40 mg tablet twice daily. 8. Carvedilol 25 mg tab one tab p.o. twice daily. 9. Vitamin B12 of 500 mcg daily. 10.Calcium 600 plus D one tablet daily. 11.Furosemide 40 mg tablet p.o. daily. 12.Keppra 1000 mg p.o. twice daily. 13.MiraLAX 17 g p.o. daily. 14.Potassium 20 mEq, take two tablets p.o. daily. 15.Prednisone 20 mg tablet, take two tablets p.o. daily. 16.Atorvastatin 40 mg tablet p.o. daily. 17.Buspirone 5 mg tablet p.o. three times daily. 18.Erythromycin ophthalmic 5 mg/g ointment applied to both eyes nightly. History And Physical [address] [address] NAME: MARCE VOGEL : 41 STATUS : ADM IN [facility]#: [id number] AGE: 71 ADM/REG DATE : 01/02/17 MR#: [id number] REPORT SERV DATE: 01/03/17 DICTATED BY: DATE: REPORT STATUS : Draft TRANSCRIBED BY: TUNG DATE: 01/02/17 19.Sertraline 50 mg tablet p.o. once daily. ALLERGIES: PENDING RECONCILIATION OF HOME MED LIST PER PHARMACY. PAST MEDICAL HISTORY: 1. TTP. 2. Non-ST elevation [place], October 2016. 3. Ischemic cardiomyopathy, ejection fraction 40%. 4. Presumed left ventricular hypertrophy/hypertensive heart disease. 5. Mitral valve prolapse. 6. History of pulmonary embolism in 2012, status post maze surgery. 7. 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 8. Hypertension. 9. Asthma. 10.Anemia. 11.Irritable bowel syndrome. PAST SURGICAL HISTORY: 1. Left total knee arthroplasty, 06/23/2013. 2. Tubal ligation. SOCIAL HISTORY: The patient is a remote smoker, having stopped in 2004. No history of alcohol abuse. 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 The patient lived alone prior to hospital admission in October 2016. The patient has been in long-term facility since November and returned to her daughter's home several days ago. FAMILY HISTORY: The patient's mother of complications related to colon cancer. The patient's father's history is positive for colon and prostate cancer as well as severe dementia. PHYSICAL EXAMINATION: VITAL SIGNS: Oxygen saturation 96% on 2 L, blood pressure 91/61, temperature 97.5, heart rate 113. NEURO: The patient is drowsy but arouses easily to verbal and tactile stimulation. Tongue midline. No pronator drift. Mild left upper extremity online program coordinator weakness. Bilateral lower extremity strength equal and intact. Extraocular movements assessed. Right and left gaze intact. The patient unable to perform upward or downward gaze. The patient unable to perform [id number] test and demonstrated difficulty distinguishing right from left side. GENERAL: The patient is oriented to self and family, otherwise transiently confused. When asked why she presented to [facility] office today, her reply was to have her knee replaced. NECK: No lymphadenopathy. CHEST: No tenderness to palpation. Lungs normal work of breathing at rest. Atelectatic crackles to bilateral bases, left greater than right. No wheezes. CARDIOVASCULAR: Irregular rhythm. Mild tachycardia. No murmurs, rubs, or gallops. ABDOMEN: Soft and nontender. Bowel sounds present in all four quadrants. EXTREMITIES: No edema to bilateral lower extremities. History And Physical [address] [address] NAME: MARCE VOGEL : 41 STATUS : ADM IN PAT#: [id number] AGE: 71 ADM/REG DATE : 01/02/17 MR#: [id number] REPORT SERV DATE: 01/03/17 DICTATED BY: DATE: REPORT STATUS : Draft TRANSCRIBED BY: TUNG DATE: 01/02/17 PSYCH: Difficult to determine orientation take secondary to altered mental status. LABORATORY DATA: Initial lab work provided by [facility]: White blood cell count 14.6, hemoglobin 12.7, hematocrit 39.3, platelets 130. Admission diagnostic evaluation pending to include CBC, PT/PTT, comprehensive metabolic panel, magnesium, phosphorus, LDH, retic count, serum lactate, troponin, BNP, procalcitonin, blood cultures x2, and urinalysis with reflex culture. CT of brain without contrast, EKG, and stool studies are also pending. ASSESSMENT AND PLAN: 1. History of thrombotic thrombocytopenic purpura with high concern for recurrence based on signs and symptoms to include acute onset of transient confusion and headache. Diarrhea and arrhythmia noted during exam. The patient has a history of multiple embolic cerebrovascular accident with hemorrhage in October 2016 secondary to abnormal coagulation cascade. Labs have been ordered to include repeat CBC. Per Oncology, if platelet count is less than 100, plasmapheresis will need to be initiated. EKG will also be obtained secondary to arrhythmia noted during exam. Stool studies will be obtained secondary to acute onset of diarrhea this morning. Dr. Arnold has requested to be notified as soon as admission labs are available so that he may assist in recommending treatment plan if diagnosis is concerning for recurrence of thrombotic thrombocytopenic purpura. 2. Acute onset of headache. The patient describes the headache as a dull persistent throb, 10/10 in pain. The patient has recent history of multiple embolic cerebrovascular accidents in the setting of thrombotic thrombocytopenic purpura. CT of brain is pending. 3. Acute onset of transient confusion. The patient's baseline status is awake, alert, oriented with episodes of confusion secondary to recent cerebrovascular events; however, there has been an acute worsening of baseline status since this a.m. Per family report, the patient is very confused at times. Exact etiology is unclear; however, there is high concern for recurrence of TTP. Acute CVA will be ruled out. 4. Altered gait. The patient's baseline is to walk with one person assistance and a cane. Altered gait is secondary to recent CVA; however, patient is now presenting with inability to ambulate. Family described the patient stance as magnetic with significant instability and balance issues. Exact etiology is unclear, however, may be multifactorial to include acute CVA and/or recurrence of thrombotic thrombocytopenic purpura. Physical therapy evaluation has been requested for eval and treatment of difficulty moving following routine attempts and assistance with fall management and discharge disposition recommendations. 5. Tachycardia. The patient's heart rate was 113 at the time of admission. The patient denies any chest pressure or chest pain. The patient's daughter reported dyspnea on exertion within the last 24 hours. EKG and troponin are pending. The patient has not received her beta gonzález for the past two days secondary to systolic blood pressure less than 100 per daughter. Metoprolol 25 mg p.o. b.i.d. has been ordered with first dose now if systolic blood pressure is greater than 110 and heart rate is not less than 60. 6. Acute episode of loose stool and bowel and bladder incontinence occurring this a.m. History And Physical [address] [address] NAME: MARCE VOGEL : 41 STATUS : ADM IN PAT#: [id number] AGE: 71 ADM/REG DATE : 01/02/17 MR#: [id number] REPORT SERV DATE: 01/03/17 DICTATED BY: DATE: REPORT STATUS : Draft TRANSCRIBED BY: TUNG DATE: 01/02/17 The patient has an episodic bladder incontinence; however, is not normally incontinent of bowel. Stool studies and urinalysis are pending. 7. Hypertension. Continue home medications as long as blood pressure is above 110. 8. Ischemic cardiomyopathy. Ejection fraction 40%. Monitor patient very closely for signs and symptoms of volume overload. 9. History of pulmonary embolism in 2012. The patient is not an anticoagulation candidate secondary to history of thrombotic thrombocytopenic purpura. 10.History of non-ST elevation myocardial infarction in October 2016, this was secondary to sequelae of thrombotic thrombocytopenic purpura. Check troponin and EKG. The care of this patient will be transferred to the service of Dr. Willian Paulino. ADEEL/TUNG JAN Cristina / [id number] CC: MD Maryana Simmons II, M.D.
[~2017-01-02 16:53] MED LIST changes: +ASAB PO; +CYANO1000T PO; +NITROSTAT0.4 MG SL; +OS500+D PO; +SINGULAIR1 PO
[2017-01-02 20:13] LABS: BASOPHILS 0 %; EOSINOPHILS 0 %; HEMATOCRIT 33.5 % (36.0-48.0); HEMOGLOBIN 11.2 g/dL (12.0-16.0); IMMATURE GRANULOCYTES 1.1 %; IMMATURE GRANULOCYTES ABSOLUTE 0.16 10/3/uL (0.0-0.11); MEAN CORPUS HGB CONC 33.4 g/dL (32.0-36.0); MEAN CORPUSCULAR HEMOGLOB 28.3 pg (26.0-34.0); MEAN PLATELET VOLUME 11.8 fL (9.2-13.0); MONOCYTES 4.1 %; MONOCYTES ABSOLUTE 0.58 10/3/uL (0.21-1.20); NEUTROPHILS 89.8 %; RBC DISTRIBUTION WIDTH 13.1 % (12.0-16.0); RED CELL COUNT 3.96 10/6/uL (4.0-5.6)
[2017-01-02 20:14] LABS: MANUAL DIFF NO %; MEAN CORPUSCULAR VOLUME 84.6 fL (80-100); PLATELET COUNT 98 10/3/uL (150-400)
[2017-01-02 20:21] LABS: INTERNATIONAL NORMAL RATI 1.5 UNITS (-); PARTIAL THROMBO TIME 33.1 SEC (22.5-37.2)
[2017-01-02 20:22] LABS: PROTIME (NOT ORD) 17.9 SEC (12.0-14.5)
[2017-01-02 20:31] LABS: A/G RATIO 0.5 (0.7-1.9); ALBUMIN 1.8 G/DL (3.5-5.0); ALKALINE PHOSPHATASE 75 U/L (45-117); BUN (BLOOD UREA NITROGEN) 21 MG/DL (6-23); CALCIUM, SERUM 8.1 MG/DL (8.5-10.4); CHLORIDE, SERUM 103 MMOL/L (96-112); CO2 (CARBON DIOXIDE) 25 MMOL/L (24-34); CREATININE 0.81 MG/DL (0.55-1.02); GFR AFRICAN AMERICAN 84 ML/MIN (>=60); GFR NON AFRICAN AMERICAN 72 ML/MIN (>=60); GLOBULIN 3.3 G/DL (2.5-4.1); GLUCOSE, SERUM 187 MG/DL (60-99); PHOSPHORUS, SERUM 2.7 MG/DL (2.5-4.5); POTASSIUM, SERUM 3.7 MMOL/L (3.5-5.3); SGOT(AST) 33 U/L (5-40); SGPT(ALT) 28 U/L (5-65); SODIUM, SERUM 139 MMOL/L (135-148); TOTAL BILIRUBIN 0.5 MG/DL (0-1.2); TOTAL PROTEIN 5.1 G/DL (6.0-8.5)
[2017-01-02 20:32] LABS: TROPONIN I 0.05 NG/ML (<0.05)
[2017-01-02 21:00] LABS: PROCALCITONIN 7.98 ng/mL (<0.5)
[2017-01-02] MEDS ORDERED: FOLIC PO (21:59)
[2017-01-02] MEDS ORDERED: BENTYL10 PO (21:59)
[2017-01-02] MEDS ORDERED: SINGULAIR1 PO (21:59)
[2017-01-02] MEDS ORDERED: PRILOSEC40 MG PO (21:59)
[2017-01-02] MEDS ORDERED: HALF81 PO (22:00)
[2017-01-02] MEDS ORDERED: SYMM100 PO (22:00)
[2017-01-02] MEDS ORDERED: LOTE40 PO (22:00)
[2017-01-02] MEDS ORDERED: COREG25 PO (22:01)
[2017-01-02] MEDS ORDERED: CALTRA600D PO (22:01)
[2017-01-02] MEDS ORDERED: B12250T PO (22:01)
[2017-01-02] MEDS ORDERED: KEPPRA1000 MG PO (22:01)
[2017-01-02] MEDS ORDERED: L40 PO (22:02)
[2017-01-02] MEDS ORDERED: MIRALAX POWDER1 PKT PO (22:02)
[2017-01-02] MEDS ORDERED: KDUR20 PO (22:03)
[2017-01-02] MEDS ORDERED: P20 PO (22:04)
[2017-01-02] MEDS ORDERED: LIPITOR40 PO (22:04)
[2017-01-02] MEDS ORDERED: BUSPAR5 PO (22:05)
[2017-01-02] MEDS ORDERED: ERYTHROMYCIN O3.5 G1 OPH (22:05)
[2017-01-02] MEDS ORDERED: ZOL50 PO (22:06)
[2017-01-03 00:30] LABS: ASCORBIC ACID (UR NOT ORDER) NEG (NEG); BILIRUBIN, URINE NEGATIVE (NEG); KETONE, URINE NEGATIVE (NEG); LEUKOCYTE ESTERASE(NOT OR TRACE (NEG); WBC (NOT ORDERED) (RFLEX) 3 (0-5)
[2017-01-03 04:53] LABS: BASOPHILS 0.1 %; BASOPHILS ABSOLUTE 0.01 10/3/uL (0.0-0.16); EOSINOPHILS 0.1 %; EOSINOPHILS ABSOLUTE 0.01 10/3/uL (0.0-0.53); HEMATOCRIT 33.2 % (36.0-48.0); HEMOGLOBIN 11.1 g/dL (12.0-16.0); IMMATURE GRANULOCYTES ABSOLUTE 0.14 10/3/uL (0.0-0.11); LYMPHOCYTES 4.4 %; LYMPHOCYTES ABSOLUTE 0.65 10/3/uL (0.67-4.30); MEAN CORPUS HGB CONC 33.4 g/dL (32.0-36.0); MEAN CORPUSCULAR HEMOGLOB 28.4 pg (26.0-34.0); MEAN CORPUSCULAR VOLUME 84.9 fL (80-100); MEAN PLATELET VOLUME 12.6 fL (9.2-13.0); MONOCYTES 3.6 %; MONOCYTES ABSOLUTE 0.53 10/3/uL (0.21-1.20); NEUTROPHILS 90.8 %; NEUTROPHILS ABSOLUTE 13.37 10/3/uL (2.02-8.40); PLATELET COUNT 119 10/3/uL (150-400); RBC DISTRIBUTION WIDTH 13.1 % (12.0-16.0); RED CELL COUNT 3.91 10/6/uL (4.0-5.6); WHITE BLOOD CELLS 14.7 10/3/uL (4.5-10.5)
[2017-01-03 04:55] LABS: MANUAL DIFF NO %
[2017-01-03 05:00] LABS: BUN (BLOOD UREA NITROGEN) 18 MG/DL (6-23); CALCIUM, SERUM 8.4 MG/DL (8.5-10.4); CHLORIDE, SERUM 108 MMOL/L (96-112); CO2 (CARBON DIOXIDE) 26 MMOL/L (24-34); CREATININE 0.63 MG/DL (0.55-1.02); GFR AFRICAN AMERICAN 103 ML/MIN (>=60); GFR NON AFRICAN AMERICAN 89 ML/MIN (>=60); GLUCOSE, SERUM 125 MG/DL (60-99); POTASSIUM, SERUM 4.1 MMOL/L (3.5-5.3); SODIUM, SERUM 138 MMOL/L (135-148)
[2017-01-03 18:15] LABS: ALLENS TEST Pos; BE (BASE EXCESS) -1.9 MEQ/L (0 +/- 2.5); CARBOXYHEMOGLOBIN 0.5 % (0-3); DEVICE NC; HCO3 (ACTUAL BICARBONATE) 20.3 MEQ/L (23-27); HEMOBLOGIN CONTENT 11.4 G/DL (12-16); INSTRUMENT SERIAL # 8083; O2 CONTENT 15.1 VOL% (18-24); OPERATOR ID 13715; PCO2 (CO2 TENSION) 27 MMHG (35-45); PO2 (O2 TENSION) 73 MMHG (79-93); SAMPLE Arterial; pH 7.49 (7.37-7.43)
[2017-01-04 05:43] LABS: BASOPHILS 0.1 %; BASOPHILS ABSOLUTE 0.01 10/3/uL (0.0-0.16); EOSINOPHILS 0 %; HEMATOCRIT 30.7 % (36.0-48.0); HEMOGLOBIN 10.3 g/dL (12.0-16.0); IMMATURE GRANULOCYTES 0.8 %; LYMPHOCYTES 3.9 %; LYMPHOCYTES ABSOLUTE 0.48 10/3/uL (0.67-4.30); MEAN CORPUS HGB CONC 33.6 g/dL (32.0-36.0); MEAN CORPUSCULAR HEMOGLOB 28.4 pg (26.0-34.0); MEAN CORPUSCULAR VOLUME 84.6 fL (80-100); MEAN PLATELET VOLUME 11.7 fL (9.2-13.0); MONOCYTES 3.3 %; NEUTROPHILS 91.9 %; NEUTROPHILS ABSOLUTE 11.28 10/3/uL (2.02-8.40); PLATELET COUNT 104 10/3/uL (150-400); RED CELL COUNT 3.63 10/6/uL (4.0-5.6); RETICULOCYTE COUNT 0.8 % (0.5-2.5); WHITE BLOOD CELLS 12.3 10/3/uL (4.5-10.5)
[2017-01-04 05:46] LABS: MANUAL DIFF NO %; RETICULOCYTE COUNT ABSOLUTE 28.3 10/3/uL (20.2-119.8)
[2017-01-04 05:59] LABS: BUN (BLOOD UREA NITROGEN) 16 MG/DL (6-23); CALCIUM, SERUM 8.1 MG/DL (8.5-10.4); CHLORIDE, SERUM 104 MMOL/L (96-112); CO2 (CARBON DIOXIDE) 29 MMOL/L (24-34); CREATININE 0.62 MG/DL (0.55-1.02); GFR AFRICAN AMERICAN 104 ML/MIN (>=60); GFR NON AFRICAN AMERICAN 89 ML/MIN (>=60); PHOSPHORUS, SERUM 2.5 MG/DL (2.5-4.5); POTASSIUM, SERUM 4.2 MMOL/L (3.5-5.3); SODIUM, SERUM 139 MMOL/L (135-148)
[2017-01-04 06:00] LABS: ALBUMIN 2.2 G/DL (3.5-5.0); GLUCOSE, SERUM 175 MG/DL (60-99)
[2017-01-05 04:18] LABS: BASOPHILS 0.1 %; BASOPHILS ABSOLUTE 0.01 10/3/uL (0.0-0.16); EOSINOPHILS 0 %; HEMATOCRIT 30.3 % (36.0-48.0); HEMOGLOBIN 10.1 g/dL (12.0-16.0); IMMATURE GRANULOCYTES 1.1 %; IMMATURE GRANULOCYTES ABSOLUTE 0.14 10/3/uL (0.0-0.11); LYMPHOCYTES 5.6 %; LYMPHOCYTES ABSOLUTE 0.69 10/3/uL (0.67-4.30); MANUAL DIFF NO %; MEAN CORPUS HGB CONC 33.3 g/dL (32.0-36.0); MEAN CORPUSCULAR HEMOGLOB 28.1 pg (26.0-34.0); MEAN CORPUSCULAR VOLUME 84.4 fL (80-100); MEAN PLATELET VOLUME 11.5 fL (9.2-13.0); MONOCYTES 3.7 %; MONOCYTES ABSOLUTE 0.46 10/3/uL (0.21-1.20); NEUTROPHILS 89.5 %; NEUTROPHILS ABSOLUTE 11.06 10/3/uL (2.02-8.40); PLATELET COUNT 135 10/3/uL (150-400); RED CELL COUNT 3.59 10/6/uL (4.0-5.6); RETICULOCYTE COUNT ABSOLUTE 35.5 10/3/uL (20.2-119.8); WHITE BLOOD CELLS 12.4 10/3/uL (4.5-10.5)
[2017-01-05 04:39] LABS: BUN (BLOOD UREA NITROGEN) 19 MG/DL (6-23); CALCIUM, SERUM 8.4 MG/DL (8.5-10.4); CHLORIDE, SERUM 105 MMOL/L (96-112); CO2 (CARBON DIOXIDE) 30 MMOL/L (24-34); CREATININE 0.69 MG/DL (0.55-1.02); GFR AFRICAN AMERICAN 100 ML/MIN (>=60); GFR NON AFRICAN AMERICAN 86 ML/MIN (>=60); GLUCOSE, SERUM 140 MG/DL (60-99); PHOSPHORUS, SERUM 2.1 MG/DL (2.5-4.5); POTASSIUM, SERUM 4.3 MMOL/L (3.5-5.3); SODIUM, SERUM 141 MMOL/L (135-148)
[2017-01-06 04:26] LABS: BASOPHILS 0.2 %; BASOPHILS ABSOLUTE 0.02 10/3/uL (0.0-0.16); EOSINOPHILS 0.1 %; EOSINOPHILS ABSOLUTE 0.01 10/3/uL (0.0-0.53); HEMATOCRIT 31.8 % (36.0-48.0); HEMOGLOBIN 10.5 g/dL (12.0-16.0); IMMATURE GRANULOCYTES 2.3 %; IMMATURE GRANULOCYTES ABSOLUTE 0.28 10/3/uL (0.0-0.11); LYMPHOCYTES 8.6 %; LYMPHOCYTES ABSOLUTE 1.03 10/3/uL (0.67-4.30); MANUAL DIFF NO %; MEAN CORPUSCULAR VOLUME 84.8 fL (80-100); MEAN PLATELET VOLUME 11.6 fL (9.2-13.0); MONOCYTES 4.9 %; MONOCYTES ABSOLUTE 0.59 10/3/uL (0.21-1.20); NEUTROPHILS 83.9 %; NEUTROPHILS ABSOLUTE 10.11 10/3/uL (2.02-8.40); PLATELET COUNT 155 10/3/uL (150-400); RBC DISTRIBUTION WIDTH 12.8 % (12.0-16.0); RED CELL COUNT 3.75 10/6/uL (4.0-5.6); RETICULOCYTE COUNT 0.9 % (0.5-2.5); RETICULOCYTE COUNT ABSOLUTE 31.9 10/3/uL (20.2-119.8)
[2017-01-06 04:39] LABS: CALCIUM, SERUM 8.5 MG/DL (8.5-10.4); CHLORIDE, SERUM 102 MMOL/L (96-112); CO2 (CARBON DIOXIDE) 34 MMOL/L (24-34); CREATININE 0.62 MG/DL (0.55-1.02); GFR AFRICAN AMERICAN 104 ML/MIN (>=60); GFR NON AFRICAN AMERICAN 89 ML/MIN (>=60); GLUCOSE, SERUM 114 MG/DL (60-99); POTASSIUM, SERUM 3.6 MMOL/L (3.5-5.3); SODIUM, SERUM 137 MMOL/L (135-148)
[2017-01-06 04:40] LABS: BUN (BLOOD UREA NITROGEN) 14 MG/DL (6-23)
[2017-01-07 04:56] LABS: BASOPHILS 0.2 %; BASOPHILS ABSOLUTE 0.02 10/3/uL (0.0-0.16); EOSINOPHILS 0.3 %; EOSINOPHILS ABSOLUTE 0.03 10/3/uL (0.0-0.53); HEMOGLOBIN 10.3 g/dL (12.0-16.0); IMMATURE GRANULOCYTES 3.1 %; IMMATURE GRANULOCYTES ABSOLUTE 0.33 10/3/uL (0.0-0.11); LYMPHOCYTES 10.9 %; LYMPHOCYTES ABSOLUTE 1.15 10/3/uL (0.67-4.30); MEAN CORPUS HGB CONC 33.2 g/dL (32.0-36.0); MEAN CORPUSCULAR HEMOGLOB 28.5 pg (26.0-34.0); MEAN CORPUSCULAR VOLUME 85.6 fL (80-100); MEAN PLATELET VOLUME 10.6 fL (9.2-13.0); MONOCYTES 4.9 %; MONOCYTES ABSOLUTE 0.52 10/3/uL (0.21-1.20); NEUTROPHILS 80.6 %; NEUTROPHILS ABSOLUTE 8.49 10/3/uL (2.02-8.40); PLATELET COUNT 155 10/3/uL (150-400); RBC DISTRIBUTION WIDTH 12.9 % (12.0-16.0); RED CELL COUNT 3.62 10/6/uL (4.0-5.6); RETICULOCYTE COUNT ABSOLUTE 35.1 10/3/uL (20.2-119.8); WHITE BLOOD CELLS 10.5 10/3/uL (4.5-10.5)
[2017-01-07 04:58] LABS: MANUAL DIFF NO %
[2017-01-07 05:12] LABS: BUN (BLOOD UREA NITROGEN) 12 MG/DL (6-23); CALCIUM, SERUM 8.4 MG/DL (8.5-10.4); CHLORIDE, SERUM 100 MMOL/L (96-112); CO2 (CARBON DIOXIDE) 36 MMOL/L (24-34); CREATININE 0.64 MG/DL (0.55-1.02); GFR AFRICAN AMERICAN 103 ML/MIN (>=60); GFR NON AFRICAN AMERICAN 89 ML/MIN (>=60); GLUCOSE, SERUM 104 MG/DL (60-99); PHOSPHORUS, SERUM 2.6 MG/DL (2.5-4.5); POTASSIUM, SERUM 3.6 MMOL/L (3.5-5.3); SODIUM, SERUM 138 MMOL/L (135-148)
[2017-01-07 05:13] LABS: ALBUMIN 2.5 G/DL (3.5-5.0)
[2017-01-08 03:33] LABS: BASOPHILS 0.1 %; BASOPHILS ABSOLUTE 0.01 10/3/uL (0.0-0.16); EOSINOPHILS 0.4 %; EOSINOPHILS ABSOLUTE 0.04 10/3/uL (0.0-0.53); HEMATOCRIT 30.8 % (36.0-48.0); HEMOGLOBIN 10.3 g/dL (12.0-16.0); IMMATURE GRANULOCYTES 2.3 %; IMMATURE GRANULOCYTES ABSOLUTE 0.23 10/3/uL (0.0-0.11); LYMPHOCYTES 10.7 %; LYMPHOCYTES ABSOLUTE 1.06 10/3/uL (0.67-4.30); MEAN CORPUS HGB CONC 33.4 g/dL (32.0-36.0); MEAN CORPUSCULAR HEMOGLOB 28.8 pg (26.0-34.0); MEAN PLATELET VOLUME 10.5 fL (9.2-13.0); MONOCYTES 3.4 %; MONOCYTES ABSOLUTE 0.34 10/3/uL (0.21-1.20); NEUTROPHILS 83.1 %; NEUTROPHILS ABSOLUTE 8.26 10/3/uL (2.02-8.40); PLATELET COUNT 189 10/3/uL (150-400); RBC DISTRIBUTION WIDTH 12.9 % (12.0-16.0); RED CELL COUNT 3.58 10/6/uL (4.0-5.6); WHITE BLOOD CELLS 9.9 10/3/uL (4.5-10.5)
[2017-01-08 03:35] LABS: MANUAL DIFF NO %; RETICULOCYTE COUNT 1.6 % (0.5-2.5); RETICULOCYTE COUNT ABSOLUTE 57.6 10/3/uL (20.2-119.8)
[2017-01-08 03:47] LABS: ALBUMIN 2.1 G/DL (3.5-5.0); BUN (BLOOD UREA NITROGEN) 13 MG/DL (6-23); CALCIUM, SERUM 8.3 MG/DL (8.5-10.4); CHLORIDE, SERUM 101 MMOL/L (96-112); CREATININE 0.59 MG/DL (0.55-1.02); GFR AFRICAN AMERICAN 105 ML/MIN (>=60); GFR NON AFRICAN AMERICAN 91 ML/MIN (>=60); GLUCOSE, SERUM 105 MG/DL (60-99); PHOSPHORUS, SERUM 2.7 MG/DL (2.5-4.5); SODIUM, SERUM 138 MMOL/L (135-148)
[2017-01-08 03:48] LABS: CO2 (CARBON DIOXIDE) 31 MMOL/L (24-34)
[2017-01-09 05:33] LABS: RETICULOCYTE COUNT 1.9 % (0.5-2.5); RETICULOCYTE COUNT ABSOLUTE 64.9 10/3/uL (20.2-119.8)
[2017-01-13 13:39] LABS: ADAMTS13 INHIB INTERP (NOTE) (()); ADAMTS13 INHIBITOR <0.4 (<0.5)
[2017-01-14 06:20] LABS: ADAMTS13 INTERP NORMAL
[2017-03-30] MEDS ORDERED: SPIRO25 PO ×2 (16:08→16:16)
[2017-03-30] MEDS ORDERED: ASAB PO (16:09)
[2017-03-30] MEDS ORDERED: FOLIC PO (16:11)
[2017-03-30] MEDS ORDERED: ERYTHROMYCIN O3.5 G1 OPH (16:11)
[2017-03-30] MEDS ORDERED: IMDUR30 PO (16:12)
[2017-03-30] MEDS ORDERED: ALMACONE PO/LIQ (16:13)
[2017-03-30] MEDS ORDERED: ZOFRAN4 PO (16:15)
[2017-03-30] MEDS ORDERED: TOPXL100 PO (16:15)
[2017-03-30] MEDS ORDERED: T PO (16:15)
[2017-03-30] MEDS ORDERED: VITAMIN B-121000 MC1 SL (16:15)
[2017-03-31] MEDS ORDERED: DEMA20 PO (06:37)
[2017-03-31] MEDS ORDERED: LEXAPRO20 PO (06:38)
== END 2017-01-09 14:40 | DRG 545 ==
LOC: 4EA 16:53
PROVIDERS: Internal Medicine; Internal Medicine Nephrology; Nurse Practitioner Adult Health; Nurse Practitioner Family
PROC: 30233K0 Transfusion of Autologous Frozen Plasma into Peripheral Vein, Percutaneous Approach (ICD-10-PCS; principal; 2017-01-03)
DX: M31.1 Thrombotic microangiopathy (principal); G93.41 Metabolic encephalopathy; I48.91 Unspecified atrial fibrillation; I25.5 Ischemic cardiomyopathy; D64.9 Anemia, unspecified; I34.1 Nonrheumatic mitral (valve) prolapse; I10 Essential (primary) hypertension; J45.909 Unspecified asthma, uncomplicated; K58.9 Irritable bowel syndrome, unspecified; M10.9 Gout, unspecified; Z79.01 Long term (current) use of anticoagulants; Z86.73 Personal history of transient ischemic attack (TIA), and cerebral infarction without residual deficits
CPT/HCPCS: 36415; 36514; 36590; 36600; 70450; 71010; 80048; 80053; 80069; 81001; 82330; 82805; 83010; 83605; 83615; 83735; 83880; 84100; 84145; 84484; 85025; 85045; 85390; 85397; 85610; 85730; 86900; 86901; 87040; 93005; 97110-GP; 97116-GP; 97162-GP; 97166-GO; 97535-GO; A9270-GY; C1752; J1200; J3475; J9310; P9044